=== PATIENT | female | born 1960 | race Caucasian/White ===

== ENCOUNTER → 2020-03-03 15:47 | Outpatient (CLI) | payer BC, SELFPAY ==
--- NOTE | ~2020-03-03 | MM_ITS ---
EXAMINATION: MM screening [facility] BI w ann HISTORY: Screening mammogram TECHNIQUE: Craniocaudal and mediolateral oblique 3-D tomosynthesis images were obtained and synthetic 2-D images were generated. CAD analysis was submitted and interpreted. COMPARISON: 05/20/2018, 05/02/2017, 03/06/2016 BREAST PARENCHYMAL COMPOSITION: There are scattered areas of fibroglandular density. FINDINGS: There is no evidence of suspicious mass, calcification, or architectural distortion to sugg est malignancy in either breast. There has been no suspicious interval change. IMPRESSION: 1. No mammographic evidence of malignancy. 2. Recommend routine screening mammography in one year. BI-RADS Category 1: Negative Reviewed, dictated and finalized at location A. CARE MANAGER
== END ==
PROVIDERS: PCP Family Medicine; Visit Provider Obstetrics & Gynecology
DX: Z12.31 Encounter for screening mammogram for malignant neoplasm of breast (principal)
CPT/HCPCS: 77063; 77067

== ENCOUNTER 2020-04-13 11:00 | Outpatient (RCR) | payer BC, SELFPAY ==
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
--- NOTE | 2020-04-18 09:57 | PCPTNOTE ---
pt called and canceled today's treatment.
--- NOTE | 2020-04-21 15:35 | PCPTNOTE ---
Patient called & cancelled today's and 04/24/20 scheduled appointment this date due to getting a Covid test.
--- NOTE | 2020-05-02 11:06 | PCPTNOTE ---
pt called 05-01-20 and canceled all her PT appointments; received message that her dizziness was worse and she went to ER; waiting to see dr and wants to cancel PT appointments. I called and left voice message for her--check on her and see if she wants to continue treatment or not? Will hold chart open for 2 weeks, in case she wants to return for additional treatment.
--- NOTE | 2020-05-24 09:20 | PCPTNOTE ---
PHYSICAL THERAPY DISCHARGE 05-24-20 Attending Provider: Marcel Rooney MD Patient:Christa June Date of :1960 Ms. June has received 2 PT sessions, on April 10 and , for vestibular therapy. She called and canceled her appointments and has not returned, therefore she will be discharged at this time. The goals were not assessed. Thank you for referring Christa to [facility]. Please review, sign, date and return this discharge summary JOHN. I have been updated about the patient's current status and I agree with discharge from the above service at this time. Referring Physician Date
== END 2020-05-24 12:51 | disposition home or self-care (01) ==
LOC: ANHPT 11:00
PROVIDERS: PCP Family Medicine; Visit Provider Otolaryngology
DX: H81.10 Benign paroxysmal vertigo, unspecified ear (principal)
CPT/HCPCS: 97110; 97161

== ENCOUNTER 2020-04-30 10:15 | Emergency (ER) | payer BC, SELFPAY ==
[2020-04-30] VITALS (7 sets, daily range): BP systolic 127–179; BP diastolic 75–96; PULSE 80–98; RESP 15–22; TEMP 36.6; O2SAT 96–100
--- NOTE | ~2020-04-30 | CT_ITS ---
EXAMINATION: CT brain wo con EXAM DATE: 04/30/2020 13:09 INDICATION: Dizziness. TECHNIQUE: Spiral CT of the head was performed without contrast. Axial, coronal and sagittal images were reviewed. The dose-length product (DLP) for this examination was 605.33 mGy-cm. The exposure w as tailored according to patient size, and iterative reconstruction (ASIR) was used as additional dos e reduction technique. FINDINGS: There is no acute intraparenchymal hemorrhage. No evidence of intraparenchymal brain mass lesion. No evidence of acute infarction. There is no mass effect or midline shift. The ventricles are normal in size. There are no extra-axial collections. There are no acute calvarial fractures. T he orbits are unremarkable. Soft tissue is unremarkable. The visualized sinuses and mastoid air neha ls are well aerated. IMPRESSION: 1. Unremarkable head CT examination. Reviewed, dictated and finalized at location A. UCTION ADMINISTRATIVE ASSISTANT
--- NOTE | 2020-04-30 10:29 | ECG_ITS ---
Measurements Intervals Bryant Rate: 82 P: 42 ME: 170 QRS: 5 QRSD: 86 T: 40 QT: 347 QTc: 407 Interpretive Statements SINUS RHYTHM BASELINE ARTIFACT- I, II, III, AVR, AVL, AVF NORMAL ECG Electronically Signed On 04-30-2020 14:21:46 TRACTOR TRAILER OPERATOR by Fletcher Miguel D.O.
[2020-04-30 11:44] LABS: Add Urine Microscopic? YES; Appearance Urine Clear (Clear); Bilirubin Urine Negative (Negative); Blood Urine Negative (Negative); Color Urine Colorless (Yellow); Glucose Urine UA 2+ mg/dL (Negative); Ketones Urine Negative (Negative); Leukocyte Esterase Ur Negative LEU/UL (Negative); Nitrate Urine Negative (Negative); Protein Urine Negative (Negative); RBC Urine 0-2 /hpf (0-2); Urobilinogen Urine Negative mg/dL (<2.0); WBC Urine 0-3 /hpf
[2020-04-30 11:45] LABS: Basophils Absolute Auto 0.1 K/mm3 (0.0-0.1); Basophils Percent Auto 1.1 % (0.2-1.2); Eosinophils Absolute Auto 0.1 K/mm3 (0-0.3); Eosinophils Percent Auto 1.2 % (0-4.4); Hematocrit 42.9 % (37.0-47.0); Hemoglobin 14.5 g/dL (12.0-15.0); Immature Granulocyte Percent A 1.2 % (0-0.5); Lymphocytes Absolute Auto 1.21 K/mm3 (0.9-3.2); Lymphocytes Percent Auto 14.7 % (18.3-44.2); Mean Corpuscular HGB Conc 33.8 g/dl (32-36); Mean Corpuscular Hemoglobin 29.6 pg (26-34); Mean Corpuscular Volume 87.6 fl (80-100); Mean Platelet Volume 9.5 fl (7.4-10.4); Monocytes Absolute Auto 0.4 K/mm3 (0.1-0.6); Monocytes Percent Auto 4.6 % (2.6-8.5); Neutrophils Absolute Auto 6.3 K/mm3 (1.3-6.7); Neutrophils Percent Auto 77.2 % (45.5-73.1); Platelet Count Result 239 k/mm3 (150-375); Red Cell Distribution Width 12.6 % (11.5-14.5); White Blood Count 8.2 K/mm3 (4.5-10.0)
[2020-04-30 11:45] LABS: Specific Grav Ur 1.004 (1.001-1.035)
[2020-04-30] MEDS: SODIUM CHLORIDE 0.9% IV 500 ML 999 ML IV CONT (11:51)
[2020-04-30 11:58] LABS: Anion Gap 5 mmol/L (8-16); Blood Urea Nitrogen 14 mg/dL (7-17); Calcium 9.4 mg/dL (8.4-10.2); Carbon Dioxide 26 mmol/L (22-30); Chloride 108 mmol/L (98-107); Estimated CRCL calculation 84 ml/min; Estimated Glomerular Filt Rate > 60; Glucose 164 mg/dL (65-105); Potassium 4.3 mmol/L (3.4-5.0); Sodium 139 mmol/L (137-145)
--- NOTE | 2020-04-30 13:55 | ED.GENADULT ---
HPI - General Adult General Chief complaint: Dizziness Stated complaint: dizzy Time Seen by Provider: 04/30/20 10:52 Source: patient, family and old records reviewed Mode of arrival: ambulatory Limitations: no limitations History of Present Illness HPI narrative: Patient is a 59-year-old female who presents with dizziness and not feeling like herself for the last several days with history of vertigo and dizziness which is being worked up by ENT and primary care currently in physical therapy for this patient is also waiting for referral to specialist in [place] for ENT patient on arrival notes that yesterday she felt she had blurred vision that was short-lived and then this morning felt more fatigued and dizzy patient on arrival is in the room in no distress resting comfortably Related Data Allergies Allergy/AdvReac Type Severity Reaction Status Date / Time latex Allergy Unknown Hives Verified 04/30/20 11:07 Penicillins Allergy Unknown HIVES, N/V Verified 04/30/20 11:07 Review of Systems Review of Systems: All systems reviewed & are unremarkable except as noted in HPI and below PMFSH Past Medical History Medical History (Updated 04/30/20 @ 14:04 by Kane Carmichael PA-C) Anxiety GERD (gastroesophageal reflux disease) Hyperlipidemia Sinusitis Surgical History Surgical History History of colonoscopy Social History Social History Smoking status: Unknown if ever smoked Gender identity (if verbalized by the patient): Female Sexual Orientation (if Verbalized by the Patient): Straight or Heterosexual Exam Narrative: Exam Narrative: GENERAL: Well-appearing, well-nourished, and in no acute distress. HEAD: Normocephalic, atraumatic. EYES: PERRLA and EOMI. ENT: Nares clear, no rhinorrhea or epistaxis. Mucous membranes moist. Oropharynx without tonsillar hypertrophy exudate or other lesions. Bilateral TMs with fluid levels bilaterally NECK: Supple. No adenopathy or masses. No carotid bruits or JVD CHEST: Clear to auscultation. No respiratory distress. No wheezes rales or rhonchi HEART: Regular rate and rhythm. No murmur heard. Normal peripheral pulses. ABDOMEN: Soft, nontender, nondistended EXTREMITIES: Normal range of motion. No edema. SKIN: Warm, dry, no rash. NEURO: No focal deficits. Alert and oriented x3. Cranial nerves II through XII grossly intact. Normal speech and gait. Motor and sensory intact. Cerebellar intact. No pronator drift PSYCH: Normal mood and affect. Course Course Emergency Course: Patient in the room no distress aware of case findings treatment plan diagnosis felt appropriate to be followed up by primary care and will be referred back to ENT for further evaluation of her symptoms ABCs intact and stable no high risk changes in the blood work or imaging Vital Signs Vital signs: Vital Signs Temperature 97.9 F 04/30/20 10:22 Pulse Rate 98 04/30/20 10:22 Respiratory Rate 20 04/30/20 10:22 Blood Pressure 179/86 H 04/30/20 10:22 Pulse Oximetry 100 04/30/20 10:22 Temperature 97.9 F 04/30/20 10:22 Pulse Rate 84 04/30/20 11:31 Respiratory Rate 22 H 04/30/20 11:31 Blood Pressure 134/78 04/30/20 11:31 Pulse Oximetry 96 04/30/20 11:31 Medical Decision Making MDM Narrative Medical decision making narrative: Patient's dizziness is felt appropriate for outpatient reevaluation, there are o focal neurological deficits on exam. Subarachnoid hemorrhage is felt to be unlikey at this time. There is no history of fever, and neck is supple without meningismus, making meningitis unlikely. No traumatic history or signs of trauma on exam. No risk factors for CVA, risk factors reviewed. Patients headache is felt to be a reasonable candidate for outpatient evaluation Vital Signs Vital Signs: Vital Signs Temperature 97.9 F 04/30/20 10:22 Pulse Rate 98
== END 2020-04-30 14:40 | disposition home or self-care (01) ==
PROVIDERS: Emergency Medicine Emergency Medical Services; Emergency Provider Emergency Medicine; PCP Family Medicine
DX: R42 Dizziness and giddiness (principal); K21.9 Gastro-esophageal reflux disease without esophagitis; E78.5 Hyperlipidemia, unspecified
CPT/HCPCS: 36415; 70450; 80048; 81001; 84443; 85025; 93005; 96360; 99284; J7040

== ENCOUNTER → 2022-01-31 12:32 | Outpatient (CLI) | payer BC, SELFPAY ==
--- NOTE | ~2022-01-31 | MM_ITS ---
EXAMINATION: MM screening [facility] BI w ann HISTORY: Screening mammogram TECHNIQUE: Craniocaudal and mediolateral oblique 3-D tomosynthesis images were obtained and synthetic 2-D images were generated. CAD analysis was submitted and interpreted. COMPARISON: 03/03/2020, 05/20/2018, 05/02/2017 BREAST PARENCHYMAL COMPOSITION: There are scattered areas of fibroglandular density. FINDINGS: No suspicious mass, calcification, or architectural distortion are identified in either brendon ast to suggest malignancy. There has been no suspicious interval change. IMPRESSION: 1. No mammographic evidence of malignancy. 2. Recommend routine screening mammography in one year. BI-RADS Category 1: Negative Reviewed, dictated and finalized at location A. ER WELT END
== END ==
PROVIDERS: PCP Emergency Medicine; Visit Provider Obstetrics & Gynecology
DX: Z12.31 Encounter for screening mammogram for malignant neoplasm of breast (principal)
CPT/HCPCS: 77063; 77067

== ENCOUNTER 2024-10-12 15:14 | Outpatient (CLI) | payer MEDICARE, SELFPAY ==
--- NOTE | ~2024-10-12 | MR_ITS ---
EXAMINATION: MR knee LT wo con DATE: 10/12/2024 15:49 INDICATION: Left knee joint effusion and medial sided pain TECHNIQUE: Magnetic resonance imaging (MRI) of the left knee was performed without intravenous contrast. Sequences included coronal PD-weighted FSE, coronal PD-weighted FS FSE, sagittal T2-weighted FSE, sagittal PD-weighted FS FSE and axial PD weighted fat saturated FSE. COMPARISON: None. FINDINGS: Medial compartment: There is medial extrusion of the medial meniscal body. Complex medial meniscal tear including a radial tear plane near the posterior root of the medial meniscus and a longitudinal horizontal tear plane extending to the inferior articular surface which extends to the posterior horn and body of the meniscus. There is extensive full/near full-thickness chondral ulceration along the anterior, septal and portions of the posterior weightbearing medial femoral condyle and at the anteromedial quadrant of the medial tibial plateau. There are some scattered mild underlying subarticular edema-like signal change. Lateral compartment: Lateral meniscus is normal. There is partial thickness chondral ulceration with chondral surface irregularity but without degenerative subchondral changes along the medial tibial plateau and at the central weightbearing lateral femoral condyle. Patellofemoral compartment: There is patellar chondral ulceration most severe along the patellar apical ridge where it appears full/near full-thickness with mild underlying subarticular edema-like signal change becoming progressively less severe extending more peripherally at the medial and lateral patellar facets. There is partial thickness chondral ulceration along the trochlea most prominent at the lateral trochlea where superiorly there is a central subchondral osteophyte which does not project beyond the margins of the adjacent cartilage. Ligaments and tendons: Anterior and posterior cruciate ligaments are normal. There is mild thickening and mild increased proximal medial collateral ligament without surrounding edema consistent with mild scarring related to chronic sprain. The fibular collateral ligament complex is normal. The extensor mechanism is normal. The visualized medial and lateral hamstring tendons as well as the iliotibial band are normal. Fluid: Small knee joint effusion at the suprapatellar pouch. There is a moderate-sized Ryan's cyst which measures 4.2 x 1.8 x 2.0 cm. No loose osteochondral bodies identified. Osseous/other: In addition to the tricompartment osteoarthritis at the knee there is additional mild to moderate osteoarthritis at the proximal tibiofibular articulation with likely secondary prominent subarticular cystlike change at the proximal head of the fibula. No fracture or pathologic marrow replacing process. IMPRESSION: 1. Medial extrusion of medial meniscal body with complex tear of the body and posterior horn including a radial tear near the posterior root. 2. Tricompartmental osteoarthritis, severe with extensive high-grade chondral malacia the medial compartment, moderate severity with additional high-grade chondromalacia process in the patellofemoral compartment and mild with moderate grade chondromalacia in the lateral compartment. 3. Mild to moderate osteoarthritis of the proximal tibiofibular articulation. 4. Very small left knee joint effusion and moderate-sized Ryan's cyst. 5. Likely mild scarring related to chronic sprain at the proximal medial collateral ligament. Reviewed, dictated and finalized at location A. IMPRESSION: 1. Medial extrusion of medial meniscal body with complex tear of the body and p osterior horn including a radial tear near the posterior root. 2. Tricompartmental osteoarthritis, severe with extensive high-grade chondral m alacia the medial compartment, moderate severity with additional high-grade cho ndromalacia process in the patellofemoral compartment and mild with moderate gr joy chondromalacia in the lateral compartment. 3. Mild to moderate osteoarthritis of the proximal tibiofibular articulation. 4. Very small left knee joint effusion and moderate-sized Ryan's cyst. 5. Likely mild scarring related to chronic sprain at the proximal medial collat eral ligament.
== END 2024-10-12 15:15 | disposition home or self-care (01) ==
LOC: GOSHIMG 15:14
PROVIDERS: PCP Orthopaedic Surgery; Visit Provider Physician Assistant
DX: S83.232A Complex tear of medial meniscus, current injury, left knee, initial encounter (principal); M25.462 Effusion, left knee; X58.XXXA Exposure to other specified factors, initial encounter; M17.12 Unilateral primary osteoarthritis, left knee; M71.22 Synovial cyst of popliteal space [Baker], left knee
CPT/HCPCS: 73721

== ENCOUNTER 2024-11-23 16:13 | Outpatient (CLI) | payer MEDICARE, SELFPAY ==
--- NOTE | ~2024-11-23 | XR_ITS ---
EXAMINATION: XR knee RT min 4V, 11/23/2024 16:20 CDT HISTORY: M17.11 - Unilateral primary osteoarthritis, right/left knee COMPARISON: No comparisons available. Findings: No acute fracture or malalignment. Moderate to severe tricompartmental degenerative changes Soft tissues unremarkable. Impression: No acute fracture or malalignment. Reviewed, dictated and finalized at location P. Impression: No acute fracture or malalignment.
--- NOTE | ~2024-11-23 | XR_ITS ---
EXAMINATION: XR knee LT min 4V, 11/23/2024 16:20 CDT HISTORY: M17.12 - Unilateral primary osteoarthritis, left knee COMPARISON: No comparisons available. Findings: No acute fracture or malalignment. Moderate tricompartmental degenerative changes Soft tissues unremarkable. Impression: No acute fracture or malalignment. Reviewed, dictated and finalized at location P. Impression: No acute fracture or malalignment.
== END 2024-11-23 16:14 | disposition home or self-care (01) ==
LOC: MICIMG 16:15
PROVIDERS: PCP Orthopaedic Surgery; Visit Provider Orthopaedic Surgery
DX: M17.0 Bilateral primary osteoarthritis of knee (principal)
CPT/HCPCS: 73564

== ENCOUNTER 2024-11-30 12:53 | Outpatient (CLI) | payer MEDICARE, SELFPAY ==
--- NOTE | ~2024-11-30 | CT_ITS ---
EXAMINATION: CT_LERTCWO_CT DATE: 11/30/2024 13:26 INDICATION: Right knee arthritis for preoperative planning TECHNIQUE: High resolution computed tomography (CT) of the right lower extremity from the hip through the ankle was performed without intravenous contrast. Additional sagittal and coronal reconstructions were performed. Automated exposure control and iterative reconstruction technique were employed. The dose- length product was 1785.72 mGy-cm. COMPARISON: 11/23/2024 FINDINGS: Bone alignment is normal. No fracture or suspected osteonecrosis. Severe osteoarthritis at the medial compartment of the right knee with eburnation underlying the articular surface at the anterior aspect medial tibial plateau and the anterior to central weightbearing medial femoral condyle. Mild osteoa rthritis at the lateral and patellofemoral compartments. Moderate osteoarthritis at the first metatarsophalangeal joint and mild osteoarthritis at the right hip and several additional joints in the right foot. Visualized moderate fluid in the right hip, knee and ankle joints. Moderate-sized Ryan's cyst at the medial side of the popliteal fossa. The uterus is not identified and has likely been surgically resected. Bladder, right adnexa and visualized portions of bowels are unremarkable. IMPRESSION: 1. Tricompartmental osteoarthritis at the right knee, severe in the medial compartment. 2. Moderate-sized Ryan's cyst. Reviewed, dictated and finalized at location A. IMPRESSION: 1. Tricompartmental osteoarthritis at the right knee, severe in the medial comp artment. 2. Moderate-sized Ryan's cyst.
--- NOTE | 2024-11-30 13:26 | ECG_ITS ---
Test Date: 2024-11-30 13:54:30 Measurements Intervals Joseph Rate: 73 P: 64 CA: 195 QRS: -21 QRSD: 83 T: -2 QT: 386 QTc: 426 Interpretive Statements SINUS RHYTHM POSSIBLE LEFT ATRIAL ENLARGEMENT INFERIOR INFARCT, AGE INDETERMINATE BASELINE ARTIFACT- I, II, III, AVR, AVL, AVF ABNORMAL ECG No previous ECG available for comparison Electronically Signed On 11-30-2024 13:56:07 CDT by Fletcher Miguel D.O.
--- OUTSIDE RECORDS SUMMARY | 2024-11-30 13:49 | XMS_ITS | Clinical Summary ---
Author Organization [facility] Address [address] [place] [id number] Care Team Providers Care Flag Car Driver Name Role Phone Bisi Salinas MD Primary Care Provider [phone] Allergies Active Allergy Reactions Criticality Noted Date Comments Penicillin V Hives 06/22/2017 Penicillins Rash,Hives Medium 09/04/2010 Medications hydrocodone-jaci taminophen (NORCO) 5-325 MG tablet Take 1-2 tablets by mouth every 6 (six) hours as needed for Pain. 30 tablet 06/26/2017 Active Active Problems Problem Noted Date Diagnosed Date Appendicitis 06/23/2017 Social History Tobacco Use Types Packs/Day Years Used Date Smoking Tobacco: Former Smokeless Tobacco: Never Alcohol Use Standard Drinks/Week Comments Yes 0 (1 standard drink = 0.6 oz pur e alcohol) VERY RARELY Comments No Sex and Gender Information Value Date Recorded Sex Assigned at Not on file Legal Sex Female 4:57 PM CDT Gender Identity Not on file Sexual Orientation Not on file Last Filed Vital Signs Vital Sign Reading Time Taken Comments Blood Pressure 135/62 06/26/2017 5:29 AM CDT Pulse 74 06/26/2017 5:29 AM CDT Temperature 36.7 C (98 F) 06/26/2017 5:29 AM CDT Respiratory Rate 18 06/26/2017 5:29 AM CDT Oxygen Saturation 95% 06/26/2017 5:29 AM CDT Inhaled Oxygen Concentration - - Weight 90.4 kg (199 lb 4.7 oz) 06/23/2017 1:57 A M CDT Height 170.2 cm (5' 7) 06/23/2017 1:57 AM CDT Body Mass Index 31.21 06/23/2017 1:57 AM CDT Plan of Treatment Health Maintenance Due Date Last Done Comments Colorectal Cancer Screening Colonoscopy (10 Years) 1960 Hepatitis C 1976 DTaP, Tdap and Td Vaccines ( 1 - Tdap) 1977 Mammogram Screening 1998 Pneumococcal Vaccine: 50+ Ye ars (1 of 1 - PCV) 2008 Zoster Vaccines (1 of 2) 2008 Dexa Scan (General) 09/14/2023 COVID-19 Vaccine (1 - 2023-2 5 season) 2024 Influenza Adult (#1) 2024 RSV Immunization or 60+ Years (1 - 1-dose 75+ series) 2033 Meningococcal B Vaccine Aged Out No l onger eligible based on patient's age to complete this topic Meningococcal Vaccine Aged Out No rita van eligible based on patient's age to complete this topic RSV Immunizations Under 20 Months Aged Out No longer eligible based on patient's age to complete this topic Insurance Advance Directives * Full Code (Latest Code Status on File) Date Activated Date Inactivated Comments 06/25/2017 5:51 PM 06/26/2017 8:10 PM Care Teams Flag Car Driver Relationship Specialty Start Date End Date Bisi Salinas MD PCP - General 05/12/10
--- OUTSIDE RECORDS SUMMARY | 2024-11-30 13:49 | XMS_ITS | Patient Health Record ---
Author Organization [facility] Address [address] [place], [place] [id number] Care Team Providers Care Crude Unit Operator Name Role Phone MiloJIMENEZ kraft Unavailable Bisi Salinas Unavailable Unavailable Reason For Referral No Information Medications Medication SIG (Take, Route, Frequency, Duration) Notes Start Date End Date Status Medrol Dosepak ORAL Medrol DosepakOr iginal MedicationMedrol Dosepak *Reorder from [employer] for eRx and Interaction Alerts* 08/12/2016 Active Plan Of Treatment No Information Insurance Providers Payer Name Payer Address Payer Phone Subscriber Number Group Number Insured Name Patient Relationship to Insured Coverage Start Date Coverage End Date [employer] [address] [place] [phone] [id number] YASMIN GARG Self - patient is the insured
--- OUTSIDE RECORDS SUMMARY | 2024-11-30 13:49 | XMS_ITS | Clinical Summary ---
Author Organization [facility] Address [address] [place] [id number] Phone Care Team Providers Care Protein Scientist Name Role Phone Bisi Salinas MD Primary Care Provider [phone] Allergies Active Allergy Reactions Criticality Noted Date Comments Latex Hives High 06/08/2020 Penicillins Rash Low 06/08/2020 Medications loratadine (CLARITIN) 10 mg tablet Take 10 mg by mouth. 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 TESTER Gender Identity Not on file Sexual Orientation Not on file Last Filed Vital Signs Vital Sign Reading Time Taken Comments Blood Pressure 134/64 06/09/2020 1:23 PM CDT Pulse 62 06/09/2020 5:32 AM CDT Temperature 36.6 C (97.8 F) 06/09/2020 11:37 AM CDT Respiratory Rate 16 06/09/2020 1:23 PM CDT Oxygen Saturation 98% 06/09/2020 1:23 PM CDT Inhaled Oxygen Concentration - - Weight 90.3 kg (199 lb) 06/08/2020 1:14 PM CDT Height 170.2 cm (5' 7) 06/08/2020 1:14 PM CDT Body Mass Index 31.17 06/08/2020 1:14 PM CDT Plan of Treatment Health Maintenance Due Date Last Done Comments BREAST CANCER SCREENING 1998 COLORECTAL SCREENING 09/14/2003 Colorectal Cancer Screening 09/14/2003 FIT-DNA Q 3 years 09/14/2003 FIT/FOBT Q 1 year 09/14/2003 Flex Sig/CT Colonography Q 5 years 09/14/2003 PNEUMOCOCCAL VACCINE 50+ YEA RS (1 of 1 - PCV) 2008 ZOSTER VACCINE (1 of 2) 2008 OSTEOPOROSIS SCREENING 09/14/2023 INFLUENZA VACCINE (#1) 2024 , 01/03/2019, 01/12/2016 DTAP/TDAP/TD VACCINES (2 - T d or Tdap) 08/10/2025 08/11/2015 RSV VACCINE (60+ or ) (1 - 1-dose 75+ series) 2033 Insurance [employer] VUEL[employer]IC/TRUE [employer] PPO Advance Directives For more information, please contact: [phone] * Default Full Code - Needs Discussion (Latest Code Status on File) Date Activated Date Inactivated Comments 06/09/2020 8:01 AM 06/09/2020 3:36 PM Care Teams Protein Scientist Relationship Specialty Start Date End Date Bisi Salinas MD [address] [phone] PCP - General Family Practice 06/08/20
--- OUTSIDE RECORDS SUMMARY | 2024-11-30 13:49 | XMS_ITS | Clinical Summary ---
Author Organization [facility] [address] Address [address] [place] [address] Care Team Providers Care Machine Tracer Name Role Phone Parent, Sil ARAUJO Primary Care Provider [phone] Allergies Active Allergy Reactions Criticality Noted Date Comments Penicillins Hives Medium 03/05/2017 Medications No known medications Active Problems Problem Noted Date Diagnosed Date GERD (gastroesophageal reflux disease) 8 Other chest pain 03/05/2017 SOB (shortness of breath) 03/05/2017 Class 1 obesity without seri ous comorbidity with body mass index (BMI) of 32.0 to 32.9 in adult 03/05/2017 ESTEFANI (obstructive sleep apnea) 03/05/2017 Chronic fatigue 03/05/2017 Dyslipidemia 03/05/2017 Second hand smoke exposure 03/05/2017 Lipid screening 03/05/2017 Surgical History Surgery Date Site/Laterality Comments HYSTERECTOMY BUNIONECTOMY Family History Medical History Relation Name Comments Heart attack Mother Relation Name Status Comments Father (Age 44) Mother Alive Social History Tobacco Use Types Packs/Day Years Used Date Smoking Tobacco: Former Smokeless Tobacco: Never Alcohol Use Standard Drinks/Week Comments Yes 0 (1 standard drink = 0.6 oz pur e alcohol) socially Comments Unknown Sex and Gender Information Value Date Recorded Sex Assigned at Not on file Legal Sex Female 3:48 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 Gender Identity Female 03/14/2019 11:25 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 Sexual Orientation Straight 03/14/2019 11 :25 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 Obstetrics History Last Filed Vital Signs Vital Sign Reading Time Taken Comments Blood Pressure 124/78 03/05/2017 8:47 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 Pulse 75 03/05/2017 8:47 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 Temperature - - Respiratory Rate - - Oxygen Saturation 98% 03/05/2017 8:47 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 Inhaled Oxygen Concentration - - Weight 94.8 kg (209 lb) 03/05/2017 8:47 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 Height 170.2 cm (5' 7) 03/05/2017 8:47 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 Body Mass Index 32.73 03/05/2017 8:47 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 Plan of Treatment Health Maintenance Due Date Last Done Comments Breast Cancer Screening-Mammogram 1960 Colon Cancer Screening-Colonoscopy 1960 Depression Screening 1958 Fall Risk Assessment 1960 Hepatitis C Screening 1958 Osteoporosis Screening-Bone Density Scan 1958 Hepatitis B Screening 1976 Pneumococcal vaccine 65+ (1 of 1 - PCV) 2008 Zoster Vaccine (1 of 2) 2008 Well Visit 65+ 09/14/2023 Covid-19 Vaccine (4 - 2024-2 6 season) 2024 01/24/2021, 06/22/2020, 05/25/2020 Influenza Vaccine (#1) 2024 , 02/28/2023, 12/01/2021, Additional history exists DTaP/Tdap/Td Vaccine (3 - Td or Tdap) 08/10/2025 08/11/2015, 08/10/2015, 06/06/2004 Insurance [place] [facility] MEDICARE [facility] Address: [facility] [address] [place] [address] Care Teams Machine Tracer Relationship Specialty Start Date End Date Sil Newman PA [address] [address] PCP - General Family Practice 07/26/24
--- OUTSIDE RECORDS SUMMARY | 2024-11-30 13:49 | XMS_ITS | Encounter Summary ---
Author Organization [facility] Address [address] [place] [address] Care Team Providers Care Cloth Bleaching Range Back Tender Name Role Phone Bisi Salinas MD Primary Care Provider [phone] Encounter Details Date Type Department Care Team (Late st Contact Info) Description 04/11/1999 Outpatient Historical [facility] [place] Peguero, Lloyd Ibrahim MD [address] [place] [address] Other screening mammogram (Primary Dx) Social History Tobacco Use Types Packs/Day Years Used Date Smoking Tobacco: Never Assessed Comments Unknown Sex and Gender Information Value Date Recorded Sex Assigned at Not on file Legal Sex Female 4:58 AM TECH[employer] Gender Identity Not on file Sexual Orientation Not on file documented as of this encounter Plan of Treatment Not on file documented as of this encounter Visit Diagnoses Diagnosis Other screening mammogram- Primary documented in this encounter Care Teams Cloth Bleaching Range Back Tender Relationship Specialty Start Date End Date Bisi Salinas MD [address] [facility] [address] [phone] PCP - General Family Practice 06/08/20 documented as of this encounter
--- OUTSIDE RECORDS SUMMARY | 2024-11-30 13:49 | XMS_ITS | Clinical Summary ---
Author Organization [facility] [employer] Address [address] [place] [address] Care Team Providers Care Police Commissioner Name Role Phone ParentSil VAN Primary Care Provider Source Comments [facility] [employer],non-owned Affiliates and Associated Physician Practices is amultiple site organization consisting of ambulatory clinics and hospital sitesin [place] and [place]. This disclosure is being madepursuant to the Care Everywhere program and may not contain all information available regarding this patient. Last updated 17.[facility] [employer] Allergies Active Allergy Reactions Criticality Noted Date Comments Latex Rash Medium 06/02/2020 Levofloxacin Other 06/02/2020 Penicillins Skin Reactions 09/04/2010 Medications * Be aware that medications may not be up to date on this document. Alwaysverify current medications with the patient. loratadine (WAL-ITIN) 10 MG tablet Take 1 (one) tablet by mouth once daily Active olopatadine (PATANASE) 0.6 % nasal solutionIndicati ons:Allergic rhinitis, unspecified seasonality, unspecified trigger Rodanthe 2 (two) sprays into each nostril 2 times daily 30.5 g 11 2 Active Additional Information Patient taking differently:2 spray Each NostrilPRN, Reported on 09/22/2023 meloxicam (Mobic) 15 MG tablet Take 1 (one) tablet by mouth once daily Active pantoprazole EC (Protonix) 20 MG tablet Take 1 (one) tablet by mouth every morning 4 Active albuterol HFA (Proventil; Ventolin; Proair) 108 (90 Base) MCG/ACT inhaler Inhale 1 (one) puff by mouth every 6 hours as needed Active Active Problems Problem Noted Date Diagnosed Date Left otitis media with effusion 01/28/2023 Throat tightness 12/28/2020 Migraines 09/01/2020 Overview (09/01/2020): atypical per pt Sleep disorder 09/01/2020 Migraine 09/01/2020 Mixed anxiety and depressive disorder 07/03/2020 Appendicitis 06/23/2017 Chest pain 03/05/2017 Chronic fatigue 03/05/2017 ESTEFANI (obstructive sleep apnea) 03/05/2017 Second hand smoke exposure 03/05/2017 SOB (shortness of breath) 03/05/2017 Abnormal glucose level 12/09/2014 Hyperlipidemia 12/09/2014 Malaise and fatigue 11/24/2014 GERD (gastroesophageal reflux disease) 4 Resolved Problems Problem Noted Date Diagnosed Date Resolved Date Upper respiratory tract infection 01/28/2023 02/11/2023 Class 1 obesity without seri ous comorbidity with body mass index (BMI) of 32.0 to 32.9 in adult 03/05/2017 08/30/2020 Encounters Date Type Department Care Team Description 2024 10:15 AM CDT Office [facility] - ENT [address] [place] [phone] Joseluis Camacho MD Bilateral chronic serous otitis media (Primary Dx); ETD (Eustachian tube dysfunction), bilateral; Bilateral sensorineural hearing loss; Atypical migraine 2024 9:30 AM CDT Testing Visit [facility] - ENT [address] [place] [phone] Sakshi Awad AuD Sensorineural hearing loss (SNHL) of both ears ; Dizziness 2024 Travel from Last 3 Months Immunizations Immunization Administration Dates Next Due Covid [employer] primary monoval ent 12+ yr 0.3mL Purple cap 01/24/2021,06/22/2020,05/25/2020 FLU VACCINE QUAD IIV4 SPLIT 0.25 ML IM 12/26/2020,11/26/2019,01/03/2019,2015 INFLUENZA VACCINE 12/01/2021,12/26/2020,03/25/19 18 INFLUENZA VACCINE, CELL CULT URE, QUADR. (FLUCELVAX QUADRIVALENT; 6MO+) (CCIIV4) 02/28/2023,12/01/2021 INFLUENZA VACCINE, CELL CULT URE, QUADR. (FLUCELVAX QUADRIVALENT; 6MO+), 0.5 ML (CCIIV4) 12/01/2021,02/28/2018 INFLUENZA VACCINE, HIGH-DOSE , QUADR. (FLUZONE HIGH-DOSE QUADRIVALENT; 65Y+), 0.7 ML (HD-IIV4) 02/04/2024 INFLUENZA VACCINE, QUADR. (F LUZONE; FLULAVAL; FLUARIX; AFLURIA QUADRIVALENT; 6MO+), 0.5 ML (IIV4) 12/26/2020,11/26/2019 INFLUENZA VACCINE, TRIV. (FL UZONE; FLULAVAL; FLUARIX; AFLURIA TRIVALENT; 6MO+), 0.5 ML (IIV3) 03/25/2017 TD (AGE 7-ADULT) 06/06/2004 TDAP (7yrs+) 08/11/2015 TDAP, HISTORIC VACCINE 08/10/2015 Family History Medical History Relation Name Comments None Known Brother Alcohol abuse Father Arthritis - Osteo Father Diabetes - Type 2 Maternal Grandmother CAD (Coronary Artery Disease) Mother Diabetes - Type 2 Mother High Cholesterol Mother Hypertension Mother Sleep Disorder - Other Mother estefani, not using cpap Osteoporosis Sister 1 yadira None Known Sister 2 Relation Name Status Comments Brother Alive Father Maternal Grandmother Mother Alive Sister 1 yadira Alive Sister 2 Alive Social History Tobacco Use Types Packs/Day Years Used Date Smoking Tobacco: Never Smokeless Tobacco: Never Tobacco Cessation:Counseling Given: Not Answered Alcohol Use Standard Drinks/Week Comments Not Currently 0 (1 standard drink = 0.6 oz pur e alcohol) gives headache PHQ-2 Answer Date Recorded PHQ2 TOTAL SCORE 0 05/16/2021 Education Answer Date Recorded What is the highest level of school you have completed or the highest degree you have received? 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 Not on file Not on file Not on file Last Filed Vital Signs Vital Sign Reading Time Taken Comments Blood Pressure 113/70 2024 9:50 AM CDT Pulse 83 2024 9:50 AM CDT Temperature 36.9 C (98.4 F) 07/13/2021 9:19 AM CDT Respiratory Rate 18 05/16/2021 3:10 PM CDT Oxygen Saturation 98% 05/16/2021 3:10 PM CDT Inhaled Oxygen Concentration - - Weight 94.3 kg (208 lb) 2024 9:50 AM CDT Height 170.2 cm (5' 7) 2024 9:50 AM CDT Body Mass Index 32.58 2024 9:50 AM CDT Plan of Treatment Upcoming Encounters Date Type Department Care Team (Late st Contact Info) Description 09/19/2025 9:30 AM CDT Testing Visit [facility] - ENT [address], [place] [phone] Sakshi Awad, Shannan [address] [facility] [place] [address] 09/19/2025 10:00 AM CDT Office Visit [facility] - ENT [address] [place] [address] Joseluis Camacho MD [address] DEPT OF OTOLARYNGOLOGY [place], [place] [id number] Health Maintenance Due Date Last Done Comments BONE DENSITY TESTING 1960 COLOGUARD (AGES 45-75) - COLON CA SCREENING 1958 COLON MONITORING 1958 COLONOSCOPY - COLON CA SCREENING 1958 CT COLONOGRAPHY - COLON CA SCREENING 1960 Colorectal Cancer Screening 1958 FIT - COLON CA SCREENING 1958 FLEX SIG - COLON CA SCREENING 1958 LIPID TESTING 1960 MAMMOGRAM 1958 HEPATITIS C SCREENING 09/08/1976 PNEUMOCOCCAL VACCINE 50+ (1 of 1 - PCV) 2008 ZOSTER VACCINE (1 of 2) 2008 Respiratory Syncytial Virus (RSV) Vaccine Pt: or over 60 yrs (1 - Risk 60-74 years 1-dose series) 2018 SCREENING FOR DIABETES 09/27/2023 09/26/2020 DEPRESSION SCREENING 02/25/2024 02/07/2022, 01/07/2022, 01/02/2022, Additional history exists MEDICARE AWV CALENDAR YEAR 2024 COVID-19 VACCINE ( - 2024- season) 2024 01/24/2021, 06/22/2020, 05/25/2020 INFLUENZA VACCINE (#1) 2024 , 02/28/2023, 12/01/2021, Additional history exists DTAP/TDAP/TD VACCINES (4 - Td or Tdap) 08/10/2025 08/11/2015, 08/10/2015, 06/06/2004 HEPATITIS B VACCINE Aged Out No longe r eligible based on patient's age to complete this topic HIB VACCINE Aged Out No longer eligi ble based on patient's age to complete this topic HPV VACCINE Aged Out No longer eligi ble based on patient's age to complete this topic MENINGOCOCCAL (Group B) VACCINE SHARED DECISION-MAKING Aged Out No longer eligible based on patient's age to complete this topic MENINGOCOCCAL GROUPS A/C/Y/W VACCINE Aged Out No longer eligible based on patient's age to complete this topic Goals Goal Patient Goal Type Associated Problems Recent Progress Patient-Stated? Author Mobility General On track(11/28/19 2:28 PM CDT) No Jojo Cabrera, RN Note: Expected end date: 02/23/2021 The goal is to maintain or improve your mobility at the optimum level for you. Interventions: Procedures Procedure Name Priority Date/Time Associated Diagnosis Comments AUDIOLOGY/TYMPANOMET RY ORDER Routine 2024 9:25 AM CDT HEMOGLOBIN A1C Routine 09/26/2020 9:06 AM CDT Excessive daytime sleepiness Restless sleeper Nocturia Overweight (BMI 25.0-29.9) from Last 3 Months or Most Recently Relevant to Health Maintenance Results * AUDIOLOGY/TYMPANOMETRY ORDER (2024 9:25 AM CDT) Saskhi Osei AuD - 2024 9:25 AM CDT History: Christa June arrived for a hearing evaluation. Patient has a history of bilateral high frequency hearing loss. She is unsure of changes in hearing. She does note occasional dizziness. She denies tinnitus. Results: Puretone air/bone conduction testing revealed a normal sloping to mild SN hearing loss in the right ear and a normal sloping to moderate SN hearing loss in the left ear. Speech understanding was excellent in the right ear and excellent in the left ear. When compared to the previous hearing test, today's results do no suggest a change in hearing. Immittance measures revealed a Type As tympanogram in the right ear, indicating shallow middle ear function. Results for the left ear revealed a Type A tympanogram, indicating normal middle ear function in that ear. These results were discussed in detail with the patient and all pertinent questions were answered. Recommendations: 1) ENT consult. 2) Re check per medical recommendation, annually, or if a change in hearing is suspected. Shannan Schilling. [facility] [employer] [facility]-Department of Otolaryngology/[facility] [address] [place] [address]. ([facility]) [place] [address] Sakshi Campbell AUDIOLOGY SERVICES ORDERABLES F inal Result * (ABNORMAL) HEMOGLOBIN A1C (09/26/2020 9:06 AM CDT) Hemoglobin A1c 5.8(H) <5.7 % of total Hgb [facility] Comment: REPORT COMMENT: FASTING:YES AN UPDATE OR CORRECTION HAS BEEN MADE TO NAME Test Performed at: [facility] [phone] NATHANIEL NEAL MD Blood BLOOD SPECIMEN / Unknown 09/26/2020 9:06 AM CDT 09/26/2020 9:07 AM CDT Rae Tavares APNP-ARBORIST REPRESENTATIVE LAB - CHEMISTRY ORDERABLES Final Result [address] [id number] from Last 3 Months or Most Recently Relevant to Health Maintenance Insurance [facility] MANAGED MEDICARE ADV Care Teams Police Commissioner Relationship Specialty Start Date End Date Parent, VAN Prado [address] [place] [phone] PCP - General Physician Curve Cleaner 09/13/24
--- OUTSIDE RECORDS SUMMARY | 2024-11-30 13:50 | XMS_ITS | Data Portability ---
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 Plan of Treatment Reminders Order Date Submit Date Provider Last Modified By Organization Details Last Modified Time Details Appointments None recorded. Lab lipid panel, serum 2024 025 [employer] [facility], [address], [place], [address], 5 11:09:57 HbA1c (hemoglobi n A1c), blood 2024 025 In-Office Order, Internal Use Only DO Not Attach Compendium DO Not Attach Compendium, Do Not Delete/merge, [id number] 12:39:47 vitamin D, 25-hydroxy , total, serum 2024 025 [employer] [facility], [address], [place], [address], 5 11:10:00 hepatitis C virus Ab, serum 2024 025 [employer] [facility], [address], [place], [address], 5 11:09:59 HIV 1+2 Ab + HIV1 p24 Ag, quantitati ve immunoassa y, serum 2024 025 [employer] [facility], [address], [address], [place], [address], 5 11:09:58 TSH, serum or plasma 2023 024 [employer] [facility], [address], [address], [place], [address], 4 15:01:04 CBC w/ auto diff 2023 024 [employer] [facility], [address], [address], [place], [address], 4 15:01:03 CMP, serum or plasma 2023 024 [employer] [facility], [address], [address], [place], [address], 4 15:01:01 HbA1c (hemoglobi n A1c), blood 2023 024 In-Office Order, Internal Use Only DO Not Attach Compendium DO Not Attach Compendium, Do Not Delete/merge, [id number] 4 12:07:13 microalbum in/creatin ine, mass ratio, urine 2023 024 [employer] [facility], [address], [address], [place], [address], 4 15:01:00 influenza virus A + B + SARS-CoV-2 (COVID19) Ag panel, rapid IA, upper respirator y specimen 2023 024 In-Office Order, Internal Use Only DO Not Attach Compendium DO Not Attach Compendium, Do Not Delete/merge, [id number] 4 17:29:44 urinalysis , dipstick 2023 024 In-Office Order, Internal Use Only DO Not Attach Compendium DO Not Attach Compendium, Do Not Delete/merge, 4 17:29:45 culture, urine 2023 024 [employer] [facility], [address], [address], [place], [address], 4 01:58:11 glucose, fingerstic k, blood 2023 024 BEN In-Office Order, Internal Use Only DO Not Attach Compendium DO Not Attach Compendium, Do Not Delete/merge, 4 09:27:04 HbA1c (hemoglobi n A1c), blood 2023 024 BEN In-Office Order, Internal Use Only DO Not Attach Compendium DO Not Attach Compendium, Do Not Delete/merge, 4 09:26:51 urinalysis , dipstick 2022 023 [email or web address] In-Office Order, Internal Use Only DO Not Attach Compendium DO Not Attach Compendium, Do Not Delete/merge, 3 17:33:59 culture, urine 2022 023 [employer] [facility], [address], [address], [place], [address], 3 05:04:09 lipid panel, serum 2022 023 [employer] [facility], [address], [address], [place], [address], 4 13:43:00 CMP, serum or plasma 2022 023 [employer] [facility], [address], [address], [place], [address], 4 13:42:59 CBC w/ auto diff 2022 023 [employer] [facility], [address], [address], [place], [address], 4 13:42:59 vitamin B12 + folate, serum or blood 2022 023 [employer] [facility], [address], [address], [place], [address], 4 13:43:00 vitamin D, 25-hydroxy , total, serum 2022 023 [employer] [facility], [address], [address], [place], [address], 4 13:43:00 Referral diabetic ophthalmol ogy referral - [facility] [address], [place], [address], 5 12:25:19 orthopedic surgeon referral - She has disc of xrays and US. 2024 025 BEN Linares MD, [address], [place], [address], 5 12:15:58 Procedures None recorded. Surgeries None recorded. Imaging MAM[facility], screening, digital, [facility] [address], [place], [address], 5 11:49:27 MRI, knee, w/o contrast [address] [facility], [address], [address], [place], [address], 5 10:21:43 DEXA - please try to schedule same day as mammogram 2024 [facility] [address], [address] [address], [place], [address], 11:49:28 Medication Orders Cipro 500 mg tablet 2023 024 [facility][id number], [address] [place], [address], 11:12:12 phenazopyr idine 200 mg tablet 2022 024 [facility]armacy #2510, [address] [place], [address], 11:12:59 cefdinir 300 mg capsule 2022 023 [email or web address] 39 [facility]/Pharmacy #[id number], [address] [place], [address], 11:12:48 Patient TargetsNo targets recorded. Patient Instructions Encounter Date Encounter Id Patient Instructions Last Modified By Organization Details Last Modified Time 02/13/2023 [id number] eustachian tube problems: care instructions [email or web address] Not available 02/13/2023 17:40:22 Christa, - Thank you for your visit - Continue your current medications - Use medications as directed - call us if no improvement in urinary symptoms after 48 hours - we will call you with a change in antibiotic if indicated - add famotidine daily in the evening - increase to 40 mg if not improving after 3-4 days - Call with any concerns [email or web address] Not available 02/13/2023 17:40:20 07/20/2024 [id number] A healthy lifestyle: care instructions Not available 07/20/2024 12:29:03 09/07/2024 [id number] advance care planning: care instructions Not available 09/07/2024 12:39:48 preventing falls : care instructions Not available 09/07/2024 12:39:47 Medicare Wellnes s Preventive Checklist Not available 09/07/2024 12:39:47 eating healthy foods: care instructions Not available 09/07/2024 12:39:47 AD8 Dementia Screening Interview Not available 09/07/2024 12:39:47 A healthy lifestyle: care instructions Not available 09/07/2024 12:39:47 Reason for Referral Orthopedic Surgeon Referral for Synovial popliteal cyst of left knee She has disc of xrays and US. Referring Physician: Sil Newman [facility], Encounter Date: 07/20/2024 Diabetic Ophthalmology Refer ral for Well controlled type 2 diabetes mellitus prefers [place] location Referring Physician: Sil Newman [facility], Encounter Date: 09/07/2024 Results Created Date Observation Date Name Description Value Unit Range Abnormal Flag Note LastModifiedBy Organization Detail LastModifiedTime 02/14/20 23 02/19/2023 CULTU RE, URINE , ROUTI NE culture, urine, routine SEE NOTE abnormal CULTU RE, URINE , ROUTI NE Micro Numbe r: [id number] Test Statu s: Final Speci men Sourc e: Urine Speci men Quali ty: Adequ ate Resul t: Great er than 100,0 00 CFU/m L of Esche luna a coli E.col i ----- ----- ----- - INT ALEJANDRINA AMOX/ CLAVU LANAT E R >=32 AMP/S ULBAC ESCALANTE R >=32 CEFAZ REG R >=64 1 CEFEP DYANA S <=0.1 2 CEFTA ZIDIM E S 2 CEFTR IAXON E S 1 CIPRO FLOXA ZOILA S <=0.0 6 GENTA MICIN R >=16 IMIPE NEM S <=0.2 5 LEVOF LOXAC IN S <=0.1 2 MEROP ENEM S <=0.2 5 NITRO FURAN TOIN S <=16 PIP/T AZOBA CTAM S 8 TRIME THOPR IM/JIMENEZ LFA R >=320 S=Kathryn cepti ble I=Int ermed iate R=Res istan t * = Not Teste d NR = Not Repor deb NN = See Thera py Comme nts THERA PY COMME NTS Note 1: For uncom plica deb UTI cause d by E. coli, K. pneum oniae or P. mirab ilis: Cefaz reg is susce ptibl e if ALEJANDRINA <32 mcg/m L and predi cts susce ptibl e to the oral agent s cefac jumana, cefdi huber, cefpo doxim e, cefpr ozil, cefur oxime , cepha lexin and lorac arbef . Not Available [facility] [address] [place], [address], 02/19/2023 16:45:06 02/14/20 23 02/13/2023 urina lysis , dipst ick Leukocytes Small Not Available In-Offi ce Order Internal Use Only DO Not Attach Compendium DO Not Attach Compendium, Do Not Delete/merge, 02/13/2023 15:40:55 02/14/20 23 02/13/2023 urina lysis , dipst ick Nitrite positi ve Not Available In-Office Order Internal Use Only DO Not Attach Compendium DO Not Attach Compendium, Do Not Delete/merge, 02/13/2023 15:40:55 02/14/20 23 02/13/2023 urina lysis , dipst ick Urobilinogen .2 Not Available In-Of fice Order Internal Use Only DO Not Attach Compendium DO Not Attach Compendium, Do Not Delete/merge, 02/13/2023 15:40:55 02/14/20 23 02/13/2023 urina lysis , dipst ick Protein Negati ve Not Available In-Office Order Internal Use Only DO Not Attach Compendium DO Not Attach Compendium, Do Not Delete/merge, 02/13/2023 15:40:55 02/14/20 23 02/13/2023 urina lysis , dipst ick pH 5.5 Not Available In-Office Order Internal Use Only DO Not Attach Compendium DO Not Attach Compendium, Do Not Delete/merge, 02/13/2023 15:40:55 02/14/20 23 02/13/2023 urina lysis , dipst ick Blood Hemoly zed: Trace Not Available In-Office Order Internal Use Only DO Not Attach Compendium DO Not Attach Compendium, Do Not Delete/merge, [id number] 02/13/2023 15:40:55 02/14/20 23 02/13/2023 urina lysis , dipst ick Specific [place] 1.015 Not Available In-Off ice Order Internal Use Only DO Not Attach Compendium DO Not Attach Compendium, Do Not Delete/merge, [id number] 02/13/2023 15:40:55 02/14/20 23 02/13/2023 urina lysis , dipst ick Ketone Negati ve Not Available In-Office Order Internal Use Only DO Not Attach Compendium DO Not Attach Compendium, Do Not Delete/merge, [id number] 02/13/2023 15:40:55 02/14/20 23 02/13/2023 urina lysis , dipst ick Bilirubin Negati ve Not Available In-Office Order Internal Use Only DO Not Attach Compendium DO Not Attach Compendium, Do Not Delete/merge, [id number] 02/13/2023 15:40:55 02/14/20 23 02/13/2023 urina lysis , dipst ick Glucose Negati ve Not Available In-Office Order Internal Use Only DO Not Attach Compendium DO Not Attach Compendium, Do Not Delete/merge, [id number] 02/13/2023 15:40:55 02/14/20 23 02/13/2023 urina lysis , dipst ick Appearance Clear Not Available In-Offi ce Order Internal Use Only DO Not Attach Compendium DO Not Attach Compendium, Do Not Delete/merge, [id number] 02/13/2023 15:40:55 02/14/20 23 02/13/2023 urina lysis , dipst ick Color Yellow Not Available In-Office Order Internal Use Only DO Not Attach Compendium DO Not Attach Compendium, Do Not Delete/merge, [id number] 02/13/2023 15:40:55 02/15/20 23 02/15/2023 LIPID PANEL , STAND SLY cholesterol, total 215 mg/dL <200 high Not Available [facility] [place] [address] [place], [address], 02/15/2023 04:46:26 02/15/20 23 02/15/2023 LIPID PANEL , STAND SLY HDL cholesterol 48 mg/dL > or = 50 low Not Available [facility] [address] [place], [address], 02/15/2023 04:46:26 02/15/2002/15/2023 LIPID PANEL , STAND SLY triglyceride s 191 mg/dL <150 high Not Available [facility] [address] [address] [place], [address], 02/15/2023 04:46:26 02/15/2002/15/2023 LIPID PANEL , STAND SLY LDL-choleste rol 134 mg/dL _(dianna c) high Refer ence range : <100 David able range <100 mg/dL for prima ry preve ntion ; <70 mg/dL for patie nts with CHD or diabe tic patie nts with > or = 2 CHD risk facto rs. LDL-C is now calcu lated using the [facility] kins jb cabrales n, which is a valid ated novel metho d provi steffany chuck r accur acy than the Fried chastity equat ion in the estim ation of LDL-C . Concetta spence SS et al. SUNNI. 2013; 310(1 9): 2061- 2068 (http ://ed ucati on.Hone and Strop Cecilia Easyclass.com. com/f aq/FA Q164) Not Available [facility] [address] [place], [address], 02/15/2023 04:46:26 02/15/20 23 02/15/2023 LIPID PANEL , STAND SLY chol/HDLC ratio 4.5 (calc ) <5.0 normal Not Available [facility] [address] [place], [address], 02/15/2023 04:46:26 02/15/20 23 02/15/2023 LIPID PANEL , STAND SLY non HDL cholesterol 167 mg/dL _(dianna c) <130 high For patie nts with diabe dickson plus 1 major ASCVD risk facto r, treat ing to a non-H DL-C goal of <100 mg/dL (LDL- C of <70 mg/dL ) is consi dered a thera peuti c optio n. Not Available [address], [address], 02/15/2023 04:46:26 02/15/20 23 02/15/2023 COMPR EHENS FREDDY METAB OLIC PANEL glucose 134 mg/dL 65-99 high Fasti ng refer ence inter aníbal For someo ne witho ut known diabe dickson, a gluco se value >125 mg/dL indic ates that they may have diabe dickson and this shoul d be confi rmed with a follo w-up test. Not Available [address], [address], 02/15/2023 04:46:27 02/15/20 23 02/15/2023 COMPR EHENS FREDDY METAB OLIC PANEL urea nitrogen (BUN) 19 mg/dL 7-25 normal Not Available [address] [address] [place], [address], 02/15/2023 04:46:27 02/15/20 23 02/15/2023 COMPR EHENS FREDDY METAB OLIC PANEL creatinine 0.92 mg/dL 0.50-1 .05 normal Not Available [address] [address] [place], [address], 02/15/2023 04:46:27 02/15/20 23 02/15/2023 COMPR EHENS FREDDY METAB OLIC PANEL eGFR 70 mL/mi n/1.7 3m2 > or = 60 normal Not Available [address], [address], 02/15/2023 04:46:27 02/15/20 23 02/15/2023 COMPR EHENS FREDDY METAB OLIC PANEL BUN/creatini ne ratio SEE NOTE: (calc ) 6-22 Not Repor deb: BUN and Creat inine are withi n refer ence range . Not Available [address] [address] [place], [address], 02/15/2023 04:46:27 02/15/20 23 02/15/2023 COMPR EHENS FREDDY METAB OLIC PANEL sodium 139 mmol/ L 135-14 6 normal Not Available [address] [address] [place], [address], 02/15/2023 04:46:27 02/15/20 23 02/15/2023 COMPR EHENS FREDDY METAB OLIC PANEL potassium 4.2 mmol/ L 3.5-5. 3 normal Not Available [address], [address], 02/15/2023 04:46:27 02/15/2002/15/2023 COMPR EHENS FREDDY METAB OLIC PANEL chloride 103 mmol/ L 98-110 normal Not Available [address], [address], 02/15/2023 04:46:27 02/15/20 23 02/15/2023 COMPR EHENS FREDDY METAB OLIC PANEL carbon dioxide 29 mmol/ L 20-32 normal Not Available [address] [place], [address], 02/15/2023 04:46:27 02/15/20 23 02/15/2023 COMPR EHENS FREDDY METAB OLIC PANEL calcium 9.2 mg/dL 8.6-10 .4 normal Not Available [address] [address] [place], [address], 02/15/2023 04:46:27 02/15/20 23 02/15/2023 COMPR EHENS FREDDY METAB OLIC PANEL protein, total 6.8 g/dL 6.1-8. 1 normal Not Available [address] [address] [place], [address], 02/15/2023 04:46:27 02/15/20 23 02/15/2023 COMPR EHENS FREDDY METAB OLIC PANEL albumin 4.2 g/dL 3.6-5. 1 normal Not Available [address] [address] [place], [address], 02/15/2023 04:46:27 02/15/20 23 02/15/2023 COMPR EHENS FREDDY METAB OLIC PANEL globulin 2.6 g/dL_ (calc ) 1.9-3. 7 normal Not Available [address] [address] [place], [address], 02/15/2023 04:46:27 02/15/20 23 02/15/2023 COMPR EHENS FREDDY METAB OLIC PANEL albumin/glob ulin ratio 1.6 (calc ) 1.0-2. 5 normal Not Available [address] [address] [place], [address], 02/15/2023 04:46:27 02/15/20 23 02/15/2023 COMPR EHENS FREDDY METAB OLIC PANEL bilirubin, total 0.5 mg/dL 0.2-1. 2 normal Not Available [address], [address], 02/15/2023 04:46:27 02/15/20 23 02/15/2023 COMPR EHENS FREDDY METAB OLIC PANEL alkaline phosphatase 81 U/L 37-153 normal Not Available [address] [address] [place], [address], 02/15/2023 04:46:27 02/15/20 23 02/15/2023 COMPR EHENS FREDDY METAB OLIC PANEL AST 14 U/L 10-35 normal Not Available [address], [address], 02/15/2023 04:46:27 02/15/20 23 02/15/2023 COMPR EHENS FREDDY METAB OLIC PANEL ALT 17 U/L 6-29 normal Not Available [address] [place], [address], 02/15/2023 04:46:27 02/15/20 23 02/15/2023 CBC (INCL UDES DIFF/ PLT) white blood cell count 5.1 thous and/u L 3.8-10 .8 normal Not Available [address], [address], 02/15/2023 04:46:27 02/15/20 23 02/15/2023 CBC (INCL UDES DIFF/ PLT) red blood cell count 4.56 gabriela on/uL 3.80-5 .10 normal Not Available [address], [address], 02/15/2023 04:46:27 02/15/20 23 02/15/2023 CBC (INCL UDES DIFF/ PLT) hemoglobin 13.3 g/dL 11.7-1 5.5 normal Not Available [address], [address], 02/15/2023 04:46:27 02/15/20 23 02/15/2023 CBC (INCL UDES DIFF/ PLT) hematocrit 39.6 % 35.0-4 5.0 normal Not Available [address], [address], 02/15/2023 04:46:27 02/15/20 23 02/15/2023 CBC (INCL UDES DIFF/ PLT) MCV 86.8 fL 80.0-1 00.0 normal Not Available [address], [address], 02/15/2023 04:46:27 02/15/20 23 02/15/2023 CBC (INCL UDES DIFF/ PLT) MCH 29.2 pg 27.0-3 3.0 normal Not Available [address], [address], 02/15/2023 04:46:27 02/15/20 23 02/15/2023 CBC (INCL UDES DIFF/ PLT) MCHC 33.6 g/dL 32.0-3 6.0 normal Not Available [address], [address], 02/15/2023 04:46:27 02/15/20 23 02/15/2023 CBC (INCL UDES DIFF/ PLT) RDW 13.1 % 11.0-1 5.0 normal Not Available [address], [address], 02/15/2023 04:46:27 02/15/2002/15/2023 CBC (INCL UDES DIFF/ PLT) platelet count 226 thous and/u L 140-40 0 normal Not Available [address], [address], 02/15/2023 04:46:27 02/15/20 23 02/15/2023 CBC (INCL UDES DIFF/ PLT) MPV 10.3 fL 7.5-12 .5 normal Not Available [address], [address], 02/15/2023 04:46:27 02/15/20 23 02/15/2023 CBC (INCL UDES DIFF/ PLT) absolute neutrophils 2836 cells /uL 1500-7 800 normal Not Available [address], [address], 02/15/2023 04:46:27 02/15/20 23 02/15/2023 CBC (INCL UDES DIFF/ PLT) absolute lymphocytes 1469 cells /uL 850-39 00 normal Not Available [address], [address], 02/15/2023 04:46:27 02/15/20 23 02/15/2023 CBC (INCL UDES DIFF/ PLT) absolute monocytes 383 cells /uL 200-95 0 normal Not Available [address] [place], [address], 02/15/2023 04:46:27 02/15/2002/15/2023 CBC (INCL UDES DIFF/ PLT) absolute eosinophils 321 cells /uL 15-500 normal Not Available [facility] [address], [address], 02/15/2023 04:46:27 02/15/20 23 02/15/2023 CBC (INCL UDES DIFF/ PLT) absolute basophils 92 cells /uL 0-200 normal Not Available [facility] [address], [address], 02/15/2023 04:46:27 02/15/2002/15/2023 CBC (INCL UDES DIFF/ PLT) neutrophils 55.6 % normal Not Available [facility] [address], [address], 02/15/2023 04:46:27 02/15/20 23 02/15/2023 CBC (INCL UDES DIFF/ PLT) lymphocytes 28.8 % normal Not Available [facility] [address], [address], 02/15/2023 04:46:27 02/15/20 23 02/15/2023 CBC (INCL UDES DIFF/ PLT) monocytes 7.5 % normal Not Available [facility] [address], [address], 02/15/2023 04:46:27 02/15/20 23 02/15/2023 CBC (INCL UDES DIFF/ PLT) eosinophils 6.3 % normal Not Available [facility] [address], [address], 02/15/2023 04:46:27 02/15/20 23 02/15/2023 CBC (INCL UDES DIFF/ PLT) basophils 1.8 % normal Not Available [facility] [address] [place], [address], 02/15/2023 04:46:27 02/15/20 23 02/15/2023 VITAM IN B12/F OLATE , SERUM PANEL vitamin B12 487 pg/mL 200-11 00 normal Not Available [facility] [address] [address] [place], [address], 02/15/2023 04:46:28 02/15/20 23 02/15/2023 VITAM IN B12/F OLATE , SERUM PANEL folate, serum 12.9 NG/mL normal Refer ence Range Low: <3.4 Borde rline : 3.4-5 .4 Candelaria l: >5.4 Not Available [facility] [address] [address] [place], [address], 02/15/2023 04:46:28 02/15/2002/15/2023 VITAM IN D,25- OH,TO DYLAN,I A vitamin D,25-oh,tota l,ia 20 NG/mL 30-100 low Vitam in D Statu s 25-OH Vitam in D: Defic iency : <20 ng/mL Insuf ficie ncy: 20 - 29 ng/mL Optim al: > or = 30 ng/mL For 25-OH Vitam in D testi ng on patie nts on D2-jimenez pplem entat ion and patie nts for whom quant itati on of D2 and D3 fract ions is requi red, the [facility] e[facility](TM ) 25-OH VIT D, (D2,D 3), LC/MS /MS is recom shireen d: order code 95409 (ibis ents >2yrs ). See Note 1 Note 1 For addit ional infor sue ceballos refer to http: //carmen michelle ics.c om/fa q/FAQ 199 (This link is being provi ded for infor chuy marsh/ laureen mratinez purpo ses only. ) Not Available [facility] [address] [address] [place], [address], 02/15/2023 04:46:28 11/18/1911/21/2023 CULTU RE, URINE , ROUTI NE culture, urine, routine SEE NOTE CULTU RE, URINE , ROUTI NE Micro Numbe r: [id number] Test Statu s: Final Speci men Sourc e: Urine Speci men Quali ty: Adequ ate Resul t: 10,00 0-49, 000 CFU/m L of Non-u ropat hogen ic Gram posit freddy organ ism May repre sent colon izers from exter nal and inter nal genit prabha. No furth er testi ng (incl uding susce ptibi lity) will be perfo rmed. Not Available [facility] [address] [place], [address], 11/21/2023 01:58:11 11/19/19 24 11/19/2023 influ lokesh virus A + B + SARS- CoV-2 (COVI D19) Ag panel , rapid IA, upper respi rator y speci men Flu A negati ve Not Available In-Office Order Internal Use Only DO Not Attach Compendium DO Not Attach Compendium, Do Not Delete/merge, 11/19/2023 16:42:31 11/19/1911/19/2023 influ lokesh virus A + B + SARS- CoV-2 (COVI D19) Ag panel , rapid IA, upper respi rator y speci men Flu B negati ve Not Available In-Office Order Internal Use Only DO Not Attach Compendium DO Not Attach Compendium, Do Not Delete/merge, 11/19/2023 16:42:31 11/19/1911/19/2023 influ lokesh virus A + B + SARS- CoV-2 (COVI D19) Ag panel , rapid IA, upper respi rator y speci men Rapid SARS CoV 2 Ag, QL IA, respiratory specimen negati ve Not Available In-Office Order Internal Use Only DO Not Attach Compendium DO Not Attach Compendium, Do Not Delete/merge, 11/19/2023 16:42:31 11/19/1911/19/2023 urina lysis , dipst ick Leukocytes Negati ve Not Available In-Office Order Internal Use Only DO Not Attach Compendium DO Not Attach Compendium, Do Not Delete/merge, [id number] 11/19/2023 16:53:34 11/19/19 24 11/19/2023 urina lysis , dipst ick Nitrite negati ve Not Available In-Office Order Internal Use Only DO Not Attach Compendium DO Not Attach Compendium, Do Not Delete/merge, 11/19/2023 16:53:34 11/19/19 24 11/19/2023 urina lysis , dipst ick Urobilinogen .2 Not Available In-Of fice Order Internal Use Only DO Not Attach Compendium DO Not Attach Compendium, Do Not Delete/merge, 11/19/2023 16:53:34 11/19/1911/19/2023 urina lysis , dipst ick Protein Trace Not Available In-Office Order Internal Use Only DO Not Attach Compendium DO Not Attach Compendium, Do Not Delete/merge, [facility] 11/19/2023 16:53:34 11/19/19 24 11/19/2023 urina lysis , dipst ick pH 5.0 Not Available In-Office Order Internal Use Only DO Not Attach Compendium DO Not Attach Compendium, Do Not Delete/merge, [facility] 11/19/2023 16:53:34 11/19/19 24 11/19/2023 urina lysis , dipst ick Blood Non-He molyze d: Trace Not Available In-Office Order Internal Use Only DO Not Attach Compendium DO Not Attach Compendium, Do Not Delete/merge, [id number] 11/19/2023 16:53:34 11/19/19 24 11/19/2023 urina lysis , dipst ick Specific [place] 1.015 Not Available In-Off ice Order Internal Use Only DO Not Attach Compendium DO Not Attach Compendium, Do Not Delete/merge, [id number] 11/19/2023 16:53:34 11/19/19 24 11/19/2023 urina lysis , dipst ick Ketone Negati ve Not Available In-Office Order Internal Use Only DO Not Attach Compendium DO Not Attach Compendium, Do Not Delete/merge, 11/19/2023 16:53:34 11/19/19 24 11/19/2023 urina lysis , dipst ick Bilirubin Negati ve Not Available In-Office Order Internal Use Only DO Not Attach Compendium DO Not Attach Compendium, Do Not Delete/merge, 11/19/2023 16:53:34 11/19/19 24 11/19/2023 urina lysis , dipst ick Glucose Negati ve Not Available In-Office Order Internal Use Only DO Not Attach Compendium DO Not Attach Compendium, Do Not Delete/merge, 11/19/2023 16:53:34 11/19/19 24 11/19/2023 urina lysis , dipst ick Appearance Clear Not Available In-Offi ce Order Internal Use Only DO Not Attach Compendium DO Not Attach Compendium, Do Not Delete/merge, 11/19/2023 16:53:34 11/19/1911/19/2023 urina lysis , dipst ick Color Yellow Not Available In-Office Order Internal Use Only DO Not Attach Compendium DO Not Attach Compendium, Do Not Delete/merge, 11/19/2023 16:53:34 11/20/1911/20/2023 gluco se, finge rstic k, blood Blood Glucose: mg/dl 144 Not Available In-Off ice Order Internal Use Only DO Not Attach Compendium DO Not Attach Compendium, Do Not Delete/merge, 11/19/2023 17:26:01 11/20/19 24 11/20/2023 HbA1c (hemo globi n A1c), blood HbA1c 6.7 Not Available In-Office Order Internal Use Only DO Not Attach Compendium DO Not Attach Compendium, Do Not Delete/merge, 11/19/2023 17:26:02 02/16/20 24 02/19/2024 ALBUM IN, RANDO M URINE W/CRE ATINI NE creatinine, random urine 141 mg/dL 20-275 normal Not Available [facility] [address] [place], [address], 02/19/2024 15:01:00 02/16/20 24 02/19/2024 ALBUM IN, RANDO M URINE W/CRE ATINI NE albumin, urine 0.2 mg/dL see note: normal Refer ence Range : Refer ence Range Not estab lishe d Not Available [address] [address] [place], [address], 02/19/2024 15:01:00 02/16/20 24 02/19/2024 ALBUM IN, RANDO M URINE W/CRE ATINI NE albumin/crea tinine ratio, random urine 1 mg/g_ creat <30 normal The ADA defin es abnor malit ies in album in excre tion as follo ws: Album inuri a Categ ory Resul t (mg/g creat inine ) Candelaria l to Mildl y incre ased <30 Moder ately incre ased 30-29 9 Sever kulwinder incre ased > OR = 300 The ADA recom mends that at least two of three speci mens colle cted withi n a 3-6 month perio d be abnor mal befor e consi drake g a patie nt to be withi n a diagn ostic categ ory. Not Available [address] [address] [address] , [place], [address], 02/19/2024 15:01:00 02/16/20 24 02/19/2024 COMPR EHENS FREDDY METAB OLIC PANEL glucose 147 mg/dL 65-99 high Fasti ng refer ence inter aníbal For someo ne witho ut known diabe dickson, a gluco se value >125 mg/dL indic ates that they may have diabe dickson and this shoul d be confi rmed with a follo w-up test. Not Available [facility] [address] [address] [place], [address], 02/19/2024 15:01:01 02/16/20 24 02/19/2024 COMPR EHENS FREDDY METAB OLIC PANEL urea nitrogen (BUN) 22 mg/dL 7-25 normal Not Available [facility] [address] [address] [place], [address], 02/19/2024 15:01:01 02/16/20 24 02/19/2024 COMPR EHENS FREDDY METAB OLIC PANEL creatinine 0.91 mg/dL 0.50-1 .05 normal Not Available [facility] [address] [address] [place], [address], 02/19/2024 15:01:01 02/16/20 24 02/19/2024 COMPR EHENS FREDDY METAB OLIC PANEL eGFR 70 mL/mi n/1.7 3m2 > or = 60 normal Not Available [facility] [address], [address], 02/19/2024 15:01:01 02/16/20 24 02/19/2024 COMPR EHENS FREDDY METAB OLIC PANEL BUN/creatini ne ratio SEE NOTE: (calc ) 6-22 Not Repor deb: BUN and Creat inine are withi n refer ence range . Not Available [address], [address], 02/19/2024 15:01:01 02/16/20 24 02/19/2024 COMPR EHENS FREDDY METAB OLIC PANEL sodium 140 mmol/ L 135-14 6 normal Not Available [facility] [address], [address], 02/19/2024 15:01:01 02/16/20 24 02/19/2024 COMPR EHENS FREDDY METAB OLIC PANEL potassium 4.6 mmol/ L 3.5-5. 3 normal Not Available [facility] [address], [address], 02/19/2024 15:01:01 02/16/20 24 02/19/2024 COMPR EHENS FREDDY METAB OLIC PANEL chloride 103 mmol/ L 98-110 normal Not Available [facility] [address] [address] [place], [address], 02/19/2024 15:01:01 02/16/20 24 02/19/2024 COMPR EHENS FREDDY METAB OLIC PANEL carbon dioxide 28 mmol/ L 20-32 normal Not Available [address], [address], 02/19/2024 15:01:01 02/16/20 24 02/19/2024 COMPR EHENS FREDDY METAB OLIC PANEL calcium 9.5 mg/dL 8.6-10 .4 normal Not Available [address], [address], 02/19/2024 15:01:01 02/16/20 24 02/19/2024 COMPR EHENS FREDDY METAB OLIC PANEL protein, total 6.6 g/dL 6.1-8. 1 normal Not Available [address], [address], 02/19/2024 15:01:01 02/16/20 24 02/19/2024 COMPR EHENS FREDDY METAB OLIC PANEL albumin 4.1 g/dL 3.6-5. 1 normal Not Available [address], [address], 02/19/2024 15:01:01 02/16/20 24 02/19/2024 COMPR EHENS FREDDY METAB OLIC PANEL globulin 2.5 g/dL_ (calc ) 1.9-3. 7 normal Not Available [address], [address], 02/19/2024 15:01:01 02/16/20 24 02/19/2024 COMPR EHENS FREDDY METAB OLIC PANEL albumin/glob ulin ratio 1.6 (calc ) 1.0-2. 5 normal Not Available [address], [address], 02/19/2024 15:01:01 02/16/20 24 02/19/2024 COMPR EHENS FREDDY METAB OLIC PANEL bilirubin, total 0.3 mg/dL 0.2-1. 2 normal Not Available [address], [address], 02/19/2024 15:01:01 02/16/20 24 02/19/2024 COMPR EHENS FREDDY METAB OLIC PANEL alkaline phosphatase 93 U/L 37-153 normal Not Available [facility] [address], [address], 02/19/2024 15:01:01 02/16/20 24 02/19/2024 COMPR EHENS FREDDY METAB OLIC PANEL AST 14 U/L 10-35 normal Not Available [address], [address], 02/19/2024 15:01:01 02/16/20 24 02/19/2024 COMPR EHENS FREDDY METAB OLIC PANEL ALT 17 U/L 6-29 normal Not Available [address], [address], 02/19/2024 15:01:01 02/16/20 24 02/19/2024 CBC (INCL UDES DIFF/ PLT) white blood cell count 6.1 thous and/u L 3.8-10 .8 normal Not Available [address], [address], 02/19/2024 15:01:03 02/16/20 24 02/19/2024 CBC (INCL UDES DIFF/ PLT) red blood cell count 4.66 gabriela on/uL 3.80-5 .10 normal Not Available [address], [address], 02/19/2024 15:01:03 02/16/20 24 02/19/2024 CBC (INCL UDES DIFF/ PLT) hemoglobin 13.3 g/dL 11.7-1 5.5 normal Not Available [facility] [address], [address], 02/19/2024 15:01:03 02/16/20 24 02/19/2024 CBC (INCL UDES DIFF/ PLT) hematocrit 40.6 % 35.0-4 5.0 normal Not Available [address], [address], 02/19/2024 15:01:03 02/16/20 24 02/19/2024 CBC (INCL UDES DIFF/ PLT) MCV 87.1 fL 80.0-1 00.0 normal Not Available [facility] [address], [address], 02/19/2024 15:01:03 02/16/2002/19/2024 CBC (INCL UDES DIFF/ PLT) MCH 28.5 pg 27.0-3 3.0 normal Not Available [address], [address], 02/19/2024 15:01:03 02/16/20 24 02/19/2024 CBC (INCL UDES DIFF/ PLT) MCHC 32.8 g/dL 32.0-3 6.0 normal For adult s, a sligh t decre ase in the calcu lated MCHC value (in the range of 30 to 32 g/dL) is most likel y not clini nawaf signi ficred t; abhishek er, it shoul d be inter prete d with cauti on in corre latio n with other red cell jonny eters and the patie nt's clini dianna condi tion. Not Available [address], [address], 02/19/2024 15:01:03 02/16/20 24 02/19/2024 CBC (INCL UDES DIFF/ PLT) RDW 13.1 % 11.0-1 5.0 normal Not Available [address], [address], 02/19/2024 15:01:03 02/16/20 24 02/19/2024 CBC (INCL UDES DIFF/ PLT) platelet count 216 thous and/u L 140-40 0 normal Not Available [address], [address], 02/19/2024 15:01:03 02/16/20 24 02/19/2024 CBC (INCL UDES DIFF/ PLT) MPV 10.6 fL 7.5-12 .5 normal Not Available [address], [address], 02/19/2024 15:01:03 02/16/20 24 02/19/2024 CBC (INCL UDES DIFF/ PLT) absolute neutrophils 3739 cells /uL 1500-7 800 normal Not Available [address], [address], 02/19/2024 15:01:03 02/16/20 24 02/19/2024 CBC (INCL UDES DIFF/ PLT) absolute lymphocytes 1440 cells /uL 850-39 00 normal Not Available [address], [address], 02/19/2024 15:01:03 02/16/20 24 02/19/2024 CBC (INCL UDES DIFF/ PLT) absolute monocytes 525 cells /uL 200-95 0 normal Not Available [address], [address], 02/19/2024 15:01:03 02/16/20 24 02/19/2024 CBC (INCL UDES DIFF/ PLT) absolute eosinophils 305 cells /uL 15-500 normal Not Available [address], [address], 02/19/2024 15:01:03 02/16/20 24 02/19/2024 CBC (INCL UDES DIFF/ PLT) absolute basophils 92 cells /uL 0-200 normal Not Available [address] [place], [address], 02/19/2024 15:01:03 02/16/20 24 02/19/2024 CBC (INCL UDES DIFF/ PLT) neutrophils 61.3 % normal Not Available [address], [address], 02/19/2024 15:01:03 02/16/20 24 02/19/2024 CBC (INCL UDES DIFF/ PLT) lymphocytes 23.6 % normal Not Available [address], [address], 02/19/2024 15:01:03 02/16/20 24 02/19/2024 CBC (INCL UDES DIFF/ PLT) monocytes 8.6 % normal Not Available [address], [address], 02/19/2024 15:01:03 02/16/20 24 02/19/2024 CBC (INCL UDES DIFF/ PLT) eosinophils 5.0 % normal Not Available [address], [address], 02/19/2024 15:01:03 02/16/20 24 02/19/2024 CBC (INCL UDES DIFF/ PLT) basophils 1.5 % normal Not Available [address], [address], 02/19/2024 15:01:03 02/16/20 24 02/19/2024 TSH W/REF MICHELLE TO FT4 TSH w/reflex to FT4 1.85 mIU/L 0.40-4 .50 normal Not Available [address], [address], 02/19/2024 15:01:04 02/16/20 24 02/16/2024 HbA1c (hemo globi n A1c), blood HbA1c 6.7 Not Available In-Office Order Internal Use Only DO Not Attach Compendium DO Not Attach Compendium, Do Not Delete/merge, [id number] 02/16/2024 09:40:41 09/08/1909/08/2024 LIPID PANEL , STAND SLY cholesterol, total 220 mg/dL <200 high Not Available [address] [address] [place], [address], 09/08/2024 11:09:56 09/08/1909/08/2024 LIPID PANEL , STAND SLY HDL cholesterol 54 mg/dL > or = 50 normal Not Available [address] [address] [place], [address], 09/08/2024 11:09:56 09/08/1909/08/2024 LIPID PANEL , STAND SLY triglyceride s 234 mg/dL <150 high If a non-f astin g speci men was colle cted, consi naida repea t trigl yceri de testi ng on a fasti ng speci men if clini nawaf indic ated. Shane mckeon et al. J. of Clin. Lipid ol. 2015; 9:129 -169. Not Available [address], [address], 09/08/2024 11:09:56 09/08/1909/08/2024 LIPID PANEL , STAND SLY LDL-choleste rol 128 mg/dL _(dianna c) high Refer ence range : <100 David able range <100 mg/dL for prima ry preve ntion ; <70 mg/dL for patie nts with CHD or diabe tic patie nts with > or = 2 CHD risk facto rs. LDL-C is now calcu lated using the Concetta n-Hop kins rinkuu samra n, which is a valid ated novel frieda solis than the Fried chastity equat ion in the estim ation of LDL-C . Concetta spence SS et al. SUNNI. 2013; 310(1 9): 2061- 2068 (http ://ed ucati on.Qu estDi Easyclass.com. com/f aq/FA Q164) Not Available [facility] [address] [place], [address], 09/08/2024 11:09:56 09/08/1909/08/2024 LIPID PANEL , STAND SLY chol/HDLC ratio 4.1 (calc ) <5.0 normal Not Available [facility] [address] [place], [address], 09/08/2024 11:09:56 09/08/1909/08/2024 LIPID PANEL , STAND SLY non HDL cholesterol 166 mg/dL _(dianna c) <130 high For patie nts with diabe dickson plus 1 major ASCVD risk facto r, treat ing to a non-H DL-C goal of <100 mg/dL (LDL- C of <70 mg/dL ) is consi dered a thera peuti c optio n. Not Available [address] [place], [address], 09/08/2024 11:09:56 09/08/1909/08/2024 HIV 1/2 ANTIG EN/AN TIBOD Y,FOU RTH GENER ATION W/RFL HIV final interpretati on HIV Negat freddy HIV-1 antig en and HIV-1 /HIV- 2 antib odies were not detec deb. There is no labor atory evide nce of HIV infec tion. Not Available [facility] [address] [address] [place], [address], 09/08/2024 11:09:58 09/08/1909/08/2024 HIV 1/2 ANTIG EN/AN TIBOD Y,FOU RTH GENER ATION W/RFL HIV Ag/Ab, 4TH gen NON-RE ACTIVE non-re active normal Not Available [address] [address] [place], [address], 09/08/2024 11:09:58 09/08/1909/08/2024 HEPAT ITIS C AB W/REF L TO HCV RNA, QN, PCR hepatitis C antibody NON-RE ACTIVE non-re active normal HCV antib yonis was non-r eacti ve. There is no labor atory evide nce of HCV infec tion. In most cases , no furth er actio n is requi red. Howev er, if recen t HCV expos ure is suspe cted, a test for HCV RNA (test code 41948 ) is sugge sted. For addit ional infor chuy rogers e refer to http: //[facility].alicja stdia gnost ics.c om/fa q/FAQ 22v1 (This link is being provi ded for infor matio nal/ educa wen l purpo ses only. ) Not Available [facility] [address] [address] [place], [address], 09/08/2024 11:09:59 09/08/19 25 09/08/2024 VITAM IN D,25- OH,TO DYLAN,I A vitamin D,25-oh,tota l,ia 24 NG/mL 30-100 low Vitam in D Statu s 25-OH Vitam in D: Defic iency : <20 ng/mL Insuf ficie ncy: 20 - 29 ng/mL Optim al: > or = 30 ng/mL For 25-OH Vitam in D testi ng on patie nts on D2-jimenez pplem entat ion and patie nts for whom quant itati on of D2 and D3 fract ions is requi red, the [facility] e[facility](TM ) 25-OH VIT D, (D2,D 3), LC/MS /MS is recom shireen d: order code 88465 (ibis ents >2yrs ). See Note 1 Note 1 For addit ional infor sue ceballos e refer to http: //[facility] centerEdison stDia gnost ics.c om/fa q/FAQ 199 (This link is being provi ded for infor matio nal/ educa wen l purpo ses only. ) Not Available [facility] [address] [address] [place], [address], 09/08/2024 11:10:00 09/08/19 25 09/07/2024 HbA1c (hemo globi n A1c), blood HbA1C 6.3 % Not Available In-Office Order Internal Use Only DO Not Attach Compendium DO Not Attach Compendium, Do Not Delete/merge, [id number] 09/07/2024 12:11:11 10/15/19 25 10/12/2024 MRI, knee, w/o contr ast No observ ation record ed. [facility] [address], [place], [address], 10/14/2024 14:31:23 Result Notes None recorded. Problems Name Problem SNOMED Code Status Onset Date Resolution Date Notes Provider Name and Address Organization Details Recorded Time Gastroes ophageal reflux disease 325238311 Active 2013 Not Available [facility] 4 11:02:00 Mixed anxiety and depressi ve disorder 937604263 Active 2020 Not Available [facility] 4 11:02:00 Migraine 74762450 Active 2020 variant Not Available [facility] 4 11:02:00 Sleep disorder 73303729 Active 2020 Not Available [facility] 4 11:02:00 Body mass index 30+ - obesity 688280549 Active 2021 Not Available [facility] 4 11:02:00 Allergic rhinitis 76430353 Active 2021 Not Available [facility] 4 11:02:00 Benign paroxysm al position al vertigo 054080025 Completed 202110/24/2022 Ludin Casanova MD Attn: Accounting ,[address] [place], [address] , [facility] 3 19:22:30 Rash of groin 06461519709 504158 Completed 202110/24/2022 Ludin Casanova MD Attn: Accounting ,[address] [place], [address] , [facility] 3 19:22:34 Vitamin D deficien 81809772 Active 2022 Not Available [facility] 4 11:02:00 Mixed hyperlip idemia 619967450 Active 2022 Not Available [facility] 4 11:02:00 Acute hemorrha gic cystitis 92236838 Completed 202204/19/2023 Ludin Casanova MD Attn: Accounting ,[address] [facility] [place], [address] , [place] [facility] 4 11:14:20 Dysfunct ion of eustachi an tube 74925925 Completed 202204/19/2023 Ludin Casanova MD Attn: Accounting ,[address] [place], [address] , [place] [facility] 4 11:14:27 Well controll ed type 2 diabetes mellitus 604978579 Active 2024 VAN Loomis Attn: Accounting ,[address] [place], [address] , [place] [facility] 5 12:06:04 Problem Notes None recorded. Procedures Surgical History Date Name Laterality Status Provider Name and Address Organization Details Recorded Time 01/30/20 19 colonoscopy completed Rip Bashir MA [place] - [facility] 02/12/2019 14:31:44 05/26/19 18 [facility] 10/01/2017 10:50:04 12/26/19 03 Hysterectomy completed Bisi Salinas PA - [facility] 09/16/2018 13:22:11 02/24/18 76 [facility]illect[facility] 10/01/2017 09:16:52 Imaging Results None recorded. Procedure Notes None recorded. Medical Equipment None Reported. Allergies Allergen ID Allergen Name Allergen Category Reaction Reaction Severity Criticality Documentation Date Start Date Code Code System Note Provider Name and Address Organization Details Recorded Time 51056 Levaquin medicatio n Not available Not available Not available 01/12/2016 85652 2 RxNorm Ana gutiérrez [place] - [facility] 6 15:04:00 19709 pantopraz ole medicatio n Not available Not available Not available 01/12/2016 03180 RxNorm Sayra Lucas ma [facility], [facility] 7 16:38:08 19672 Product containin g penicilli n (product) medicatio n Not available Not available Not available 01/12/2016 24464 8001 SNOMED Ana Michelle [facility], [facility] 6 15:04:18 45387 pantopraz ole sodium medicatio n rash moderate Not available 02/28/20162013 57204 1 RxNorm React ion: rash; Sever ity: Moder ate; Comme nt: She takes Brand Name Only; Aller gy Type: Aller gy; Not Available [facility] 7 03:47:27 Medications Name Sig Start Date Stop Date Status Note LastModified by Organization Details LastModified Time cyclobenzap rine 10 mg tablet Take 1 tablet 3 times a day by oral route as needed. 11/30 completed Not Available Not Available Not Available clindamycin HCl 300 mg capsule TAKE 1 CAPSULE BY MOUTH THREE TIMES A DAY FOR 10 DAYS 02/13 completed Not Available Not Available Not Available azithromyci n 250 mg tablet TAKE 2 TABLETS BY MOUTH TODAY, THEN TAKE 1 TABLET DAILY FOR 4 DAYS DIRECTED 11/18 completed Not Available Not Available Not Available fluconazole 150 mg tablet TAKE 1 TABLET BY MOUTH FOR 1 DOSE 12/02 completed Not Available Not Available Not Available benzonatate 200 mg capsule TAKE 1 CAPSULE BY MOUTH THREE TIMES A DAY FOR 10 DAYS 02/15 completed Not Available Not Available Not Available citalopram 10 mg tablet Take 1 tablet every day by oral route. 08/09 completed Not Available Not Available Not Available hydrocodone 5 mg-acetamin ophen 325 mg tablet 10/01 completed Not Available Not Available Not Available meloxicam 15 mg tablet TAKE 1 TABLET BY MOUTH EVERY DAY 07/20 completed Not Available Not Available Not Available sucralfate 1 gram tablet Take 1 tablet 4 times a day by oral route as needed. 02/25 completed Not Available Not Available Not Available phenazopyri dine 200 mg tablet Take 1 tablet 3 times a day by oral route for 2 days. 04/19 completed Not Available Not Available Not Available sumatriptan 25 mg tablet TAKE 1 TAB BY MOUTH ONCE AT FIRST SIGN OF MIGRAINE. MAY REPEAT ONE TIME AFTER 1 HOURS IF NEEDED 01/22 completed Not Available Not Available Not Available metronidazo le 0.75 % (37.5 mg/5 gram) vaginal gel INSERT 1 APPLICATO RFUL INTO VAGINA EVERY NIGHT AT BEDTIME 02/15 completed Not Available Not Available Not Available famotidine 40 mg tablet TAKE 1 TABLET EVERY DAY BY ORAL ROUTE IN THE EVENING FOR 15 DAYS. 10/24 completed Not Available Not Available Not Available prednisone 20 mg tablet PLEASE SEE ATTACHED FOR DETAILED DIRECTION S 11/18 completed Not Available Not Available Not Available promethazin e 6.25 mg-codeine 10 mg/5 mL syrup TK 5 ML PO Q 6 H PRN 01/11 completed Not Available Not Available Not Available meclizine 12.5 mg tablet TAKE 1-2 TABLETS BY MOUTH UP TO 3 TIMES DAILY NEEDED FOR VERTIGO 07/20 completed Not Available Not Available Not Available ciprofloxac in 500 mg tablet TAKE 1 TABLET BY MOUTH EVERY 12 HOURS FOR 7 DAYS 02/15 completed Not Available Not Available Not Available sulfamethox azole 800 mg-trimetho prim 160 mg tablet TAKE 1 TABLET BY MOUTH TWICE A DAY 12/12 completed Not Available Not Available Not Available omeprazole 40 mg capsule,del ayed release one PO in AM 11/06 completed RxNor m: [id number] 9;All ow Subst ituti on: True Not Available Not Available Not Available pantoprazol e 20 mg tablet,sylvie yed release TAKE 1 TABLET BY MOUTH EVERY DAY IN THE MORNING active Not Available Not Available No t Available propranolol 10 mg tablet TAKE 1 TABLET BY MOUTH TWICE A DAY 01/21 completed Not Available Not Available Not Available methocarbam ol 750 mg tablet Take 1 tablet every day by oral route at bedtime. 09/07 completed Not Available Not Available Not Available meclizine 25 mg tablet Take 1 tablet 3 times a day by oral route as needed. 01/11 completed Not Available Not Available Not Available benzonatate 100 mg capsule TK 1 C PO TID 01/11 completed Not Available Not Available Not Available cephalexin 500 mg capsule Take 1 capsule every 8 hours by oral route for 10 days. 09/10 completed Not Available Not Available Not Available pantoprazol e 40 mg tablet,sylvie yed release TAKE ONE TABLET BY MOUTH EVERY DAY - RECOMMEND DECREASIN G TO 20MG WITH NEXT REFILL 02/15 completed Not Available Not Available Not Available clotrimazol e-betametha sone 1 %-0.05 % topical cream APPLY TWICE A DAY NEEDED FOR IRRITATIO N 01/22 completed Not Available Not Available Not Available polymyxin B sulfate 10,000 unit-trimet hoprim 1 mg/mL eye drops 10/01 completed Not Available Not Available Not Available triamterene 37.5 mg-hydrochl orothiazide 25 mg tablet Take 1 tablet every day by oral route for 7 days. 08/09 completed Not Available Not Available Not Available folic acid 1 mg tablet TAKE 1 TABLET BY MOUTH EVERY DAY 01/21 completed Not Available Not Available Not Available codeine 10 mg-guaifene sin 100 mg/5 mL oral liquid TAKE 5-10 ML BY MOUTH AT BEDTIME NEEDED FOR COUGH 04/19 completed Not Available Not Available Not Available diclofenac sodium 50 mg tablet,sylvie yed release 01/22 completed Not Available Not Available Not Available ergocalcife rol (vitamin D2) 1,250 mcg (50,000 unit) capsule TAKE 1 CAPSULE BY MOUTH EVERY 7 DAYS 09/10 completed Not Available Not Available Not Available methylpredn isolone 4 mg tablets in a dose pack Take 1 dose pk by oral route as directed. 09/10 completed Not Available Not Available Not Available albuterol sulfate HFA 90 mcg/actuati on aerosol inhaler INHALE 1 TO 2 PUFFS BY MOUTH EVERY 4 HOURS NEEDED WHEEZING FOR 10 DAYS active Not Available Not Available No t Available propranolol 20 mg tablet TAKE 1 TABLET BY MOUTH TWICE A DAY 02/15 completed Not Available Not Available Not Available cefdinir 300 mg capsule TAKE 1 CAPSULE BY MOUTH EVERY 12 HOURS FOR 7 DAYS 04/19 completed Not Available Not Available Not Available doxycycline hyclate 100 mg tablet 01/11 completed Not Available Not Available Not Available Vivelle-Dot 0.025 mg/24 hr transdermal patch Apply 1 patch(es) to lower abdomen 2 times weekly 08/23 completed RxNor m: [id number] 8;All ow Subst ituti on: True Not Available Not Available Not Available azithromyci n 500 mg tablet Take 1 tablet every day by oral route for 3 days. 02/13 completed Not Available Not Available Not Available nitrofurant oin monohydrate /macrocryst als 100 mg capsule TAKE 1 CAPSULE BY MOUTH TWICE A DAY FOR 7 DAYS 02/15 completed Not Available Not Available Not Available Zostavax (PF) 19,400 unit/0.65 mL subcutaneou s suspension [employer] [place] and administe r as directed in Prescribi ng Informati on 01/23 completed RxNor m: [id number] 35;Al low Subst ituti on: True Not Available Not Available Not Available Evamist 1.53 mg/spray (1.7 %) transdermal spray Apply 1 spray every day by topical route. 10/01 completed Not Available Not Available Not Available olopatadine 0.6 % nasal spray SPRAY 2 (TWO) SPRAYS INTO EACH NOSTRIL 2 TIMES DAILY active Not Available Not Available No t Available Suprep Bowel Prep Kit 17.5 gram-3.13 gram-1.6 gram oral solution 01/11 completed Not Available Not Available Not Available loratadine 10 mg capsule Take 1 capsule every day by oral route. 01/11 completed Not Available Not Available Not Available Fluzone Quad (PF) 60 mcg (15 mcg x 4)/0.5 mL IM syringe PHARMACY ADMINISTE RED 01/11 completed Not Available Not Available Not Available Paxlovid 300 mg (150 mg x 2)-100 mg tablets in a dose pack TAKE 3 TABLETS BY MOUTH TWICE A DAY FOR 5 DAYS DIRECTED ON PACKAGE INSTRUCTI ONS 11/18 completed Not Available Not Available Not Available Vitals Date Recorded Body height Body mass index (BMI) Body weight Oxygen saturation Oxygen saturation in Arterial blood by Pulse oximetry Heart rate Body temperature Systolic And Diastolic Provider Name and Address Organization Details Last Updated DateTime 5 170.18 cm 32 kg/m2 47453.8 4 g 97 % 97 % 73 /min 98 [degF] 109/73 mm[Hg] Luz Hernandez MA [facility] 5 10:24:49 Date Recorded Body height Body mass index (BMI) Body weight Body temperature Oxygen saturation Oxygen saturation in Arterial blood by Pulse oximetry Heart rate Systolic And Diastolic Provider Name and Address Organization Details Last Updated DateTime 5 170.18 cm 32.5 kg/m2 65234.7 2 g 97.9 [degF] 97 % 97 % 68 /min 117/74 mm[Hg] Sil Arroyo MA [facility] 5 11:33:48 Date Recorded Body height Body mass index (BMI) Body weight Body temperature Oxygen saturation Oxygen saturation in Arterial blood by Pulse oximetry Heart rate Systolic And Diastolic Provider Name and Address Organization Details Last Updated DateTime 4 170.18 cm 32 kg/m2 87731.9 4 g 98.7 [degF] 98 % 98 % 75 /min 105/71 mm[Hg] Gina Lugo MA [facility] 4 16:18:30 Date Recorded Body height Body temperature Body mass index (BMI) Body weight Oxygen saturation Oxygen saturation in Arterial blood by Pulse oximetry Heart rate Systolic And Diastolic Provider Name and Address Organization Details Last Updated DateTime 3 170.18 cm 97.7 [degF] 33.1 kg/m2 46628.7 1 g 98 % 98 % 80 /min 103/69 mm[Hg] Carla Rose MA [facility] 3 16:15:05 Date Recorded Body height Body mass index (BMI) Body weight Oxygen saturation Oxygen saturation in Arterial blood by Pulse oximetry Heart rate Body temperature Systolic And Diastolic Provider Name and Address Organization Details Last Updated DateTime 4 170.18 cm 32.1 kg/m2 95660.4 4 g 96 % 96 % 69 /min 98 [degF] 122/79 mm[Hg] Luz Hernandez MA [facility] 4 11:11:45 Social History Question Answer Notes LastModified by Organizat ion Details LastModified Time Tobacco Smoking Status Never Smoker Ana gutiérrez [facility] 01/12/2016 14:49:58 Do You Have An Advance Directive? No Information not available 07/03/2020 Are You Blind Or Do You Have Difficulty Seeing? No Information not available 07/03/2020 What Is Your Level Of Caffeine Consumption? None Information not available 01/21/2022 In The 14 Days Before Symptom Onset, Have You Had Close Contact With A Laboratory-confir med COVID-19 While That Case Was Ill? No Information not available 07/03/2020 In The 14 Days Before Symptom Onset, Have You Had Close Contact With A Person Who Is Under Investigation For COVID-19 While That Person Was Ill? No Information not available 07/03/2020 Have You Been To An Area Known To Be High Risk For COVID-19? No Information not available 07/03/2020 Are You Deaf Or Do You Have Serious Difficulty Hearing? No Information not available 07/03/2020 What Type Of Diet Are You Following? REGULAR Low Sodium Information not available 07/03/2020 What Was The Date Of Your Most Recent Tobacco Screening? 09/07/2024 [email or web address] Information not available 09/07/2024 What Is Your Relationship Status? Information not available 07/03/2020 Do You Use Your Seat Belt Or Car Seat Routinely? No Information not available 04/17/2020 Do You Have Smoke And Carbon Monoxide Detectors In Your Home? Yes Information not available 07/03/2020 Are You Passively Exposed To Smoke? No Information no t available 07/03/2020 Has Tobacco Cessation Counseling Been Provided? No Information not available 04/17/2020 Sex: Female Functional Status Question Answer Note LastModified by OrganAtzipat ion Details LastModified Time Do you use any illicit or recreational drugs? No Information not available 04/17/2020 Do you or have you ever used any other forms of tobacco or nicotine? No Information not available 04/17/2020 What is your level of alcohol consumption? None Information not available 04/17/2020 Are you currently employed? No Information not available 07/03/2020 Are you able to care for yourself independently? Yes Information not available 07/03/2020 What is your exercise level? None Information not available 07/20/2024 Mental Status Question Answer Note LastModified by Organization D etails LastModified Time Do you feel stressed (tense, restless, nervous, or anxious, or unable to sleep at night)? [id number] Information not available 04/17/2020 Family History Relationship Description Onset Age of this Age Resolved Age Notes LastModified by Organization Details LastModified Time Father Harmful pattern of use of alcohol hreedma Not available 2015 14:50:06 Mother Diabetes mellitus hreedma Not available 2015 14:50:12 Mother Gallstone [email or web address] Not avai lable 10/01/2017 09:17:48 Sister Osteoporosis hreedma Not availa ble 01/12/2016 14:50:20 Paternal Grandmother Malignant neoplasm of breast ssadlowskima Not available 09/2017 09:17:40 Medical History Condition Response Anxiety Disorder Y Acid Reflux (GERD) Y Allergies Y High Cholesterol Y Gynecological History Statement/Question Response Menses Monthly N Obstetrics History GPAL:G 1 P 1 0 0 0 Type Value Full Term 1 Total 1 Immunizations Vaccine Type Date Status Note Provider Nam e and Address Organization Details Recorded Time Influenza, split virus, quadrivalent, preservative 9 completed Josephine gutiér[place], [place] - [facility] 03/03/2023 10:29:45 Influenza, split virus, quadrivalent, preservative 0 completed [place] [facility] 03/03/2023 10:29:45 COVID-19, mRNA, LNP-S, PF, 30 mcg/0.3 mL dose 1 completed [place] [facility] 03/03/2023 10:29:45 COVID-19, mRNA, LNP-S, PF, 30 mcg/0.3 mL dose 1 completed [place] [facility] 03/03/2023 10:29:45 Influenza, split virus, quadrivalent, preservative 1 completed [place] [facility] 03/03/2023 10:29:45 COVID-19, mRNA, LNP-S, PF, 30 mcg/0.3 mL dose 1 completed [place] [facility] 03/03/2023 10:29:45 Influenza, MDCK, quadrivalent, preservative 2 completed [place]ine [place] [facility] 03/03/2023 10:29:45 Influenza, split virus, quadrivalent, preservative 6 completed Not Available [facility] 03/13/2019 02:32:38 Influenza, MDCK, quadrivalent, PF 4 completed Josephine gutiérrez, [place] - [facility] 03/12/2023 21:10:46 Influenza, high-dose, trivalent, PF 4 completed [place]rez[place] [facility] 02/06/2024 17:29:50 Influenza, MDCK, quadrivalent, preservative 9 completed Not Available [facility] 09/07/2024 11:11:15 Tdap 6 completed Josephine gutiérrez, [place] - [facility] 03/03/2023 10:29:45 Td (adult), 2 Lf tetanus toxoid, preservative free, adsorbed 5 completed [place]ine gut[place] [facility] 03/03/2023 10:29:45 Pneumococcal conjugate PCV20, polysaccharide [id number] conjugate, adjuvant, PF 5 completed MYKE Ledbetter, [place] - [facility] 09/07/2024 13:06:50 influenza, unspecified formulation 8 completed Josephine gutiérrez, [place] - [facility] 03/03/2023 10:29:45 Past Encounters Encounter ID Performer Location Encounter Start Date Encounter Closed Date Diagnosis/Indication Diagnosis SNOMED-CT Code Diagnosis ICD10 Code Diagnosis IMO Codes Diagnosis Note [id number] Bisi Salinas MD [facility] [address] [place] [address] 01/12/2016 14:30:16 01/16/2016 10:32:15 Administration of influenza vaccine 54247103 Z23 Thigh pain 48842088 M79. 651 in XR normal and patient calls back refer to PT [id number] Iris Irving MD [facility] [address] [place] [address] 11/28/2016 15:58:27 12/02/2016 12:08:47 Acute sinusitis 71066436 J01.90 Impacted cerumen 9859146 6 H61.21 [id number] Phong Rubio MD [facility] [address] [place] [address] 10/01/2017 10:37:42 10/02/2017 10:54:56 Acute gastritis 73858798 K29.00 Viral gastroenteritis 11 9537673 A08.4 Diarrhea 87376784 R19.7 [id number] Bisi Salinas MD [facility] [address] [place] [address] 02/25/2018 11:25:22 02/26/2018 08:47:44 Adult health examination 891301838 Z00.00 Loss of hair 604306751 L 65.9 Injury of left foot 1185 191603 3913828 S99.922A Tinea corporis 91749224 B35.4 Hyperlipid emia screening 342069734 Z13.220 Bilateral chronic serous otitis 012651796 H65.23 [id number] Bisi Salinas MD [facility] [address] [place] [address] 09/16/2018 11:20:32 09/16/2018 13:51:57 Right lower quadrant pain 602785058 R10.31 [id number] VAN Loomis [facility] [address] [place] [address] 01/13/2019 10:53:05 01/13/2019 14:03:19 Benign paroxysmal positional vertigo 130459760 H81.13 start vitaliy's after some improvemen t, daily until symptoms gone. If no better or worse will call for vestibular PT. and consider brain scan Serous otitis media 8032 7007 H65.03 [id number] Bisi Salinas MD [facility] [address] [place] [address] 02/12/2019 14:02:51 02/15/2019 09:27:03 Acute maxillary sinusitis 54829308 J01.00 Persistent cough 8734515 02 R05 Upper resp iratory infection 62877992 J06.9 [id number] Bisi Salinas MD [facility] [address] [place] [address] 01/12/2020 14:25:05 01/12/2020 16:18:55 Acute maxillary sinusitis 24508179 J01.00 [id number] Bisi Salinas MD [facility] [address] [place] [address] 04/17/2020 13:48:55 04/17/2020 16:08:03 Vertigo 395317025 R42 Acute maxi llary sinusitis 65097196 J01.00 Muscle spa sm of cervical muscle of neck 2841341948 04 M62.838 Hyperlipidemia 15707084 E78.5 [id number] Bisi Salinas MD [facility] [address] [place] [address] 05/03/2020 09:56:53 05/03/2020 16:03:24 Vertigo 933728598 R42 Mixed anxi ety and depressive disorder 601407992 F41.8 [id number] Bisi Salinas MD [facility] [address] [place] [address] 07/03/2020 10:05:20 07/03/2020 20:37:20 Gastroesophageal reflux disease 597631163 K21.9 continue OTC prilosec Mixed anxi ety and depressive disorder 494664669 F41.8 Vertigo 444707198 R42 Esophageal dysphagia 408 28896 R13.19 [id number] Bisi Salinas MD [facility] [address] [place] [address] 08/09/2020 13:04:13 08/09/2020 16:00:45 Acute sinusitis 97250179 J01.90 saline nasal spray several times a day, ok to continue antihistam ine and sudafed if helping, call if no better. covid vaccinated [id number] Bisi Salinas MD [facility] [address] [place] [address] 11/30/2020 10:37:38 12/01/2020 14:36:53 Acute sinusitis 01980401 J01.90 saline nasal spray several times a day, ok to continue antihistam ine and sudafed if helping, call if no better. covid vaccinated . I told her to go get tested if any fevers, lost of taste or smell, or just to know if she has it since her booster COVID vaccine is coming up eligible. In the mean time, isolate from others and good hand sanitizing measures discussed. [id number] Bisi Salinas MD [facility] [address] [place] [address] 12/18/2020 10:30:04 12/18/2020 17:04:52 Acute maxillary sinusitis 82058961 J01.00 [id number] VAN Loomis [facility] [address] [place] [address] 09/10/2021 12:13:59 09/10/2021 16:26:00 Upper respiratory infection 39018488 J06.9 she agrees to take her home COVID test, she is fully vaccinate with first booster, no second booster yet. No SOB or fevers documented . If positive she will likely accept paxlovid, if negative I will offer antibiotic s due to her history of sinus issues and production of thick purulent drainage. [id number] Ludin Casanova MD [facility] [address] [place] [address] 12/12/2021 10:46:47 12/12/2021 15:32:50 Benign paroxysmal positional vertigo 713050619 H81.12 - current symptoms and examinatio n most consistent with benign paroxysmal positional vertigo- handout provided describing pathophysi ology, reviewed with patient- Crowell-Deejay off maneuvers reviewed, as well as half-boris sault maneuvers- meclizine for symptom-re liefPatien t to call if not improving in 10-14 days.Patie nt voices understand ing and agreement with plan. Long-term drug therapy 942409474 Z79.899 Check routine labwork for ongoing long-term medication use. Migraine 27055790 G43.90 9 - tolerating increased dose well- management per ENT at this time- recommende d acute therapy with non-steroi fidelia anti-infla mmatory drugs for any acute symptoms- reviewed brief orthostati c hypotensio n related to beta arturo use [id number] Ludin Casanova MD [facility] [address] [place] [address] 01/21/2022 14:40:17 01/22/2022 11:57:33 Sore throat 002887087 J02.9 Upper resp iratory infection 81291179 J06.9 # URILikely viral.Reas surance. Supportive care.Incre ase fluid intake, rest.Oral corticoste roids for anti-infla mmatory effectOTC decongesta nt. pseudoephe drnolberto, Benadryl. - monitor pulseTo call if not improved over the next several days, or if getting worse.Ibis ent voices understand ing and agreement with plan. [id number] Ludin Casanova MD [facility] [address] [place] [address] 12/02/2022 14:56:26 12/03/2022 10:48:25 Suspected COVID-19 019296572 Z20.822 - negative rapid covid testing Upper resp iratory infection 16543232 J06.9 # URILikely viral.Reas surance. Supportive care.Incre ase fluid intake, rest.Oral corticoste roids for anti-infla mmatory effectOTC decongesta nt. pseudoephe drine, Benadryl. - monitor pulseBacku p antibiotic with 3-day course of azithromyc incodeine cough syrupTo call if not improved over the next several days, or if getting worse.Ibis ent voices understand ing and agreement with plan. [id number] Ludin Casanova MD [facility] [address] [place] [address] 01/22/2023 13:43:21 01/26/2023 10:52:50 Upper respiratory infection 84362985 J06.9 # URILikely viral.Reas surance. Supportive care.Incre ase fluid intake, rest.Oral corticoste roids for anti-infla mmatory effectOTC decongesta nt. pseudoephe drine, Benadryl. - monitor pulseBacku p antibiotic with 3-day course of azithromyc incodeine cough syrupTo call if not improved over the next several days, or if getting worse.Ibis ent voices understand ing and agreement with plan. [id number] Ludin Casanova MD [facility] [address] [facility] [address] 02/13/2023 15:27:12 02/14/2023 10:28:06 Urinary symptoms 550553103 R39.9 - dysuria Acute hemo rrhagic cystitis 60355744 N30.01 # UTI, uncomplica deb Urine dipstick: + leukocyte esterase, + nitrates, + blood Start empiric antibiotic Cefdinir 300 mg bid x 5 days Consider cranberry juice for symptom-re lief Phenazopyr idine 200 mg 3 times daily x 2 days if needed for comfort (turns urine orange, sometimes can affect contact lenses) Await urine culture results Call if not improving in 48 hoursPatie nt voices understand ing and agreement with plan Gastroesop hageal reflux disease 898517206 K21.9 - continue proton pump inhibitor, add H2 arturo, consider stopping/d ecreasing meloxicam Long-term drug therapy 302282665 Z79.899 Check routine labwork for ongoing long-term medication use. Vitamin D deficiency 347 20260 E55.9 Mixed hyperlipidemia 267 864708 E78.2 Dysfunctio n of eustachian tube 10244568 H69.92 - handout provided- consider ent follow-up if persistent [id number] Ludin Casanova MD [facility] [address] [place] [address] 11/19/2023 15:40:23 11/20/2023 11:19:36 Fever 367120043 R50.9 Excessive thirst 5855507 7 R63.1 Nocturia 128555970 R35.1 Acute pyelonephritis 366 30251 N10 REviewed her C&S, only other option other than nitrofuran toin is quinolones . She is not sure she is allergic to levaquin, does not recall reaction. She wants to try cipro, I told her to discontinu e immediatel y if any rashes. Continue to push fluids, watch for fevers, N/V, increasing pain, chills etc. Will await new culture and be in touch with her on Friday Type 2 phyllis betes mellitus 59816278 E11.9 new onset diabetes. Discussed with patient the pathophysi ology of type II diabetes and insulin resistance . Discussed the potential complicati ons and vascular compromise of uncontroll ed blood sugars, such as stroke, CAD, retinopath y and kidney disease. We reviewed current HgA1C and goal of <7 A1C which she is already achieved. Lipid goals discussed. We discussed in great length carb counting, label reading and her daily carbohydra te goals. Choosing healthy carbs like fruits, veggies, whole grains, and lean proteins. Avoiding any sugar in beverages, and how exercise is important in maintainin g healthy blood sugars and a healthier weight. We spent more than 25 minutes in this counseling session. [id number] Iris Irving MD [facility] [address] [place] [address] 02/16/2024 10:41:48 02/23/2024 10:05:06 Type 2 diabetes mellitus without complication 673610319 E11.9 a1c newly elevated at 6.7 3 months ago. Diet and lifestyle attempt this past 3 months, has really not been committed at all, she admits to no change, especially with the holidays. No change in A1C of 6.7. Spent 30 minutes reviewing low glycemic diet, eating more protein, veggies and fruit, and intentiona lly exercising . We talked about importance of not drinking her carbs, good sleep hygeine, monitoring home glucose. Lightheadedness 89340575 8 R42 intermitte nt, near syncopal episodes. I told her that she needs to stay VERY hydrated, should be checking her sugar and BP during these episodes if she has any more. If any more occur, we will need to order holter monitor. she understand s. RRR today. Palpitations 02372041 R0 0.2 hydration, sleep, alcohol and caffeine avoidance. [id number] Iris Irving MD [facility] [address] [facility] [address] [facility] [address] 07/20/2024 09:49:23 07/21/2024 10:29:16 Synovial popliteal cyst of left knee 0473323426 M71.22 8798633 taking 600mg Ibuprofen otc with some relief.Pablo l refer to ortho, continue NSAID of choice. Ice in the evening if it helps. Avoid any steps, squatting etc. Advised that ortho likely will offer steroid injection. Discussed knee replacemen t etc. which she has had conversati on before with ortho. Obese class I 0684606544 66686 E66.811 [id number] keep upcoming July appt for a1c and DM f/u [id number] Iris Irving MD [facility] [address] [facility] [address] [facility] [address] 09/07/2024 11:09:46 09/07/2024 15:50:25 Adult health examination 291842805 Z00.00 Health Risk Assessment collected and reviewed. Labs all UTD in January, minus lipids and vit D. Colonoscop y 01/2019, repeat 10 years. No mammogram on file. Tetanus 07/2025 due next year. Pneumonia offered, RSV and zoster recommende d along with fall seasonal COVID and Flu. Last bone density 2013, recommend repeating and she agrees. Obese class I 2360024422 97941 E66.811 [id number] Patient with work on healthier whole food diet, routine exercise in attempt to lose weight. Well contr olled type 2 diabetes mellitus 471570631 E11.9 [id number] it's been a couple of years. A1C MUCH improved and in prediabete s range with diet changes discussed at last visit alone. Congratula deb on her success. Mixed hyperlipidemia 267 953113 E78.2 ate this AM, bagel with cream cheese, and berries 4 hours ago Vitamin D deficiency 347 02704 E55.9 continue otc supplement and will check bone density Screening mammography 24 457942 Z12.31 [id number] order printed for scheduling . Does see sanitizer at [facility] and just had a pap. HIV screening 890035742 Z11.4 214054 Viral scre ening status 503229710 Z11.59 860478 Menopause present 481849 006 Z78.0 21277 Requires v accination against Streptococcus pneumoniae 1878863516 Z23 552674 Effusion o f joint of left knee 2064403983 11059 M25.309 [id number] has appt with Vijay on Nov 01. Xrays confirm effusion, still giving out, shifting, can hardly bear weight. Already failed PT, she went for 6 visit through Omer's office to [facility] in [facility]. Has been on NSAIDs since June since the twisting injury. Health Concerns Section Related Observation LastModified by Organization Detai ls LastModified Time None Recorded Concern Status LastModified by Organization Details LastModified Time None Recorded Advance Directives Directive N: Payers Insurance Date Sequence Insurance Name Policy Number Policy Castro Covered Member ID Castro Member ID Guarantor Name 11/19/2023 1 [employer] [id number] Christa Mcknightwvey [id number] Christa Mcknightwvey 11/28/2016 1 [facility] (PPO) [id number] Christa Martinez Cawvey [id number] Christa Martinez Cawvey 09/04/2024 1 [facility] (MEDICARE REPLACEMENT/ ADVANTAGE - PPO) [id number] Christa Martinez Cawvey [id number] Christa Mcknightwvey 01/12/2020 1 [employer] (PPO) [id number] Christa Martinez Cawvey [id number] Christa Mcknightwvey Notes Date Note Type Note Provider Name and Address Organization Details Recorded Time 02/13/2023 text/html Urinary FrequencyReported by PatientHPIFor associated symptoms, patient reportsabdominal pain (lower left, resolved),chills,pain during urination,incomplete emptying of bladder,nausea,nocturi a,urine odor, andfeelings of urgency. For onset/timing, patient reportsactual date: (last night).ROS as noted in the HPI ACUTE VISIT/SUBJECTIVE: Christa presents with dysuria beginning last night- sense of fullness- urinary frequency, urgency- no hematuria- no back pain- no fevers, + chills- fatigue She continues to feel overall poorly- did see ent after our last visit, he treated with clinda- no significant improvement - has not obtained routine labwork Pertinent past medical, surgical, family and social history reviewed and updated as needed.Pertinent positives and negatives as noted in HPI. All other systems reviewed and negative.-Proof Machine Operator/Nursing note reviewed.- Ludin Casanova MD Attn: Accounting, [address] [facility], [place], [address], [facility] 02/13/2023 19:06:51 11/19/2023 text/html Generic HPI TemplateReported by [email or web address] days ago went to due to burning urination, took macrobid for 7 days and sensitivity was <16 for nitrofurantoin. 3 days later her back hurt really bad to the left, chills and fever. Nausea too. Urine white and clear. SO THIRSTY and cotton mouth. PB toast and jello 3 hours agoROS as noted in the HPI Pt went to Urgent care on Nov 06 for a UTI, Head stuffy, cotton mouth, chills on friday and friday, fever yesterday 99.5. VAN Loomis Attn: Accounting,[address] [facility], [place], [address], [facility] 11/19/2023 23:10:36 02/16/2024 text/html Diabetes F/URepo rted by PatientHPIFor associated symptoms, patient reportsincreased thirst,increased urination, andcalluses on feetbut reportsno weight gain,no weight loss,no dizziness,no sweats,no headaches,no confusion,no increased appetite,no blurred vision, andno numbness of feet. For labs, patient reportslast a1c result: 6.7(11/20/23). For context, patient reportsseeing eye doctor regularly,checking feet regularly,not missing doses of medications, andno side effects from medications.This was originally scheduled to f/u on her newly diagnosed DM, and assure that diet control is sufficient. She admits she hasn't really changed anything, not diet or exercise.ROS as noted in the HPI pt said that she has felt like she was going to faint a couple times when she has been driving during the day pt said that she just don't feel right VAN Loomis Attn: Accounting,[address], [place], [address], [facility] 02/22/2024 23:18:09 07/20/2024 text/html KneeReported by PatientHPIFor associated symptoms, patient reportsweakness,catchi ng/locking, andinstabilitybut reportsno numbness,no tingling,no redness,no warmth,no popping/clicking,no buckling,no grinding,no radiation down leg,no drainage,no fever,no chills,no weight loss, andno change in bowel/bladder habits. For location, patient reportsleft. For quality, patient reportssharp,deep,cons tant, andworsening. For severity, patient reportsmoderate. For duration, patient reportsdate of onset: (07/11/24). For timing, patient reportscannot identify. For context, patient reportscannot identify. For alleviating factors, patient reportsiceandelevation . For aggravating factors, patient reportsstanding,walkin g,bending/squatting,ro m,weight bearing,getting out of bed,going from sit to stand,upstairs, anddownstairs. For previous surgery, patient reportsnone. For prior imaging, patient reportsx ray(urtalsound). For previous injections, patient reportsnone. For previous pt, patient reportsnone. For work related, patient reportsno. For working, patient reportsno.went to 10 days ago, acute left knee, behind pain. IN the past was always her right, saw ortho 2 years ago for it.This time it's left knee, acute onset afternoon on a Friday with no known injury, US showed 1-2 cm barraza's cyst. Xray.ROS as noted in the HPI pt want to urgent care on 07/11/24 VAN Loomis Attn: Accounting,[address] , [place], [address], [facility] 07/20/2024 12:29:36 09/07/2024 text/html MAW 2Reported by PatientSocial/Behavior al HistoryFor diet and nutrition, patient reportshealthy diet. For fracture risk, patient reportsno history of fracturesandno sudden unexplained fractures.Mental Status:For concentration and memory, patient reportsno decreased concentrating ability,no memory lapses or loss, anddoes not forget words. For speech/motor difficulties, patient reportsno speech difficulties,no difficulty expressing formulated concepts,no difficulty with fine manipulative tasks,no difficulty writing/copying,no slowed reaction time, anddoes not knock things over when trying to pick them up.Functional AbilityFor falls risk assessment, patient reportsdizziness/verti gobut reportsno frequent falls while walking,no fall in the past year, andno fall since last visit. For home safety, patient reportsdoes not have hand bars in the bathroom/showerbut reportsno unsafe mary anne hazzards,no unsafe stairs,working smoke/co detectors,practicing 'safer sex',no fire arms, andgood lighting in the home. For hearing, patient reportsno loss of hearing. For vision, patient reportsno vision problems. For activities of daily living, patient reportsable to bathe with limited or no assistance,able to contol urination and bowels,able to dress with limited or no assistance,able to feed self with limited or no assistance,able to get out of chair or bed with limited or no assistance,able to groom with limited or no assistance, andable to toilet with limited or no assistance. For instrumental activities of daily living, patient reportsable to do house work with limited or no assistance,able to grocery shop with limited or no assistance,able to manage medications with limited or no assistance,able to manage money with limited or no assistance,able to prepare meals with limited or no assistance, andable to use the phone with limited or no assistance.ROS as noted in the HPI VAN Loomis Attn: Accounting,[address] [facility], [place], [address], [facility] 09/07/2024 14:15:19 OBGyn Episode No OBEpisode recorded.
[2024-11-30 14:12] LABS: Hematocrit 41.1 % (37.0-47.0); Hemoglobin 13.4 g/dL (12.0-15.0)
[2024-11-30 14:26] LABS: Albumin Level 4.2 g/dL (3.5-5.1); Estimated Glomerular Filt Rate > 60
== END 2024-11-30 12:54 | disposition home or self-care (01) ==
PROVIDERS: PCP Physician Assistant; Visit Provider Orthopaedic Surgery
DX: M17.11 Unilateral primary osteoarthritis, right knee (principal); Z01.818 Encounter for other preprocedural examination
CPT/HCPCS: 36415; 73700; 82040; 82565; 85014; 85018; 93005

== ENCOUNTER 2024-12-02 14:13 | Outpatient (CLI) | payer MEDICARE, SELFPAY ==
--- NOTE | ~2024-12-02 | DEXA_ITS ---
Bone Density Report Name: YASMIN GARG Age: 64 Sex: Female Ethnicity: White Date of : 1960 Indication: postmenopausal; screening for osteoporosis; height loss; hysterectomy; Referring Provider: Parent, Sil Crawford Study: Bone densitometry was performed. Exam Date: December 02, 2024 Accession number: [id number] Bone Density: Region BMD T-score Z-score Classification AP Spine(L1-L4) 0.850 -1.8 0.1 Osteopenia Femoral Neck (Left) 0.639 -1.9 -0.3 Osteopenia Total Hip (Left) 0.785 -1.3 0.0 Osteopenia Femoral Neck (Right) 0.685 -1.5 0.1 Osteopenia Total Hip (Right) 0.754 -1.5 -0.3 Osteopenia Total Hip Mean 0.770 -1.4 -0.2 Osteopenia World Health Organization criteria for BMD impression classify patients as: Normal (T-score at or above -1.0), Osteopenia (T-score between -1.0 and -2.5), or Osteoporosis (T-score at or below -2.5). 10-year Fracture Risk(1): Major Osteoporotic Fracture 9.5% Hip Fracture 1.3% Reported Risk Factors: [place] (), Neck BMD=0.639, BMI=34.7 (1) FRAX(R) Version 3.08. Fracture probability calculated for an untreated patient. Fracture probability may be lower if the patient has received treatment. Clinical Information Provided by Patient: Has the following medical conditions: Hysterectomy Patient maximum height was 67 Menopause Age: 43 No regular weight bearing exercise Does not regularly consume dairy products Onset of menses at age 11 Number of children 1 Impression: The patient has low bone mass, based on the Left Femoral Neck T-score. The patient has an estimated ten-year risk of hip fracture of 1.3% and an estimated ten-year risk of major fracture of 9.5%, based on the WHO FRAX algorithm. Discussion: BONE DENSITY IS LOW AT ONE OR MORE SKELETAL SITES. This patient's lowest T-score is low at one or more skeletal sites. It meets the World Health Organization's (WHO) criteria for ?low bone mass? (T-score between -1.0 and -2.5). The patient's 10-year risk of fracture as calculated by FRAX is less than the threshold where pharmacological therapy is recommended by the National Osteoporosis Foundation (NOF). However, all treatment decisions require clinical judgment and consideration of individual patient factors, including patient preferences, comorbidities, previous drug use, risk factors not captured in the FRAX model (e.g., frailty, falls, vitamin D deficiency, increased bone turnover, interval significant decline in bone density) and possible under or overestimation of fracture risk by FRAX. The patient should follow a healthful lifestyle (good nutrition with adequate calcium and vitamin D, and appropriate weight-bearing exercise). Follow-Up: Consider repeating this study in 2 to 3 years to reassess this patient's status, or sooner if there is some new clinical indication. Reported by: BRUCE on 12/02/2024 2:40:00 PM. Reviewed, dictated and finalized at location A.
== END 2024-12-02 14:14 | disposition home or self-care (01) ==
PROVIDERS: PCP Obstetrics & Gynecology; Visit Provider Physician Assistant
DX: M85.89 Other specified disorders of bone density and structure, multiple sites (principal); Z78.0 Asymptomatic menopausal state
CPT/HCPCS: 77080

== ENCOUNTER 2024-12-29 15:22 | Outpatient (CLI) | payer MEDICARE, SELFPAY ==
--- NOTE | ~2024-12-29 | MM_ITS ---
EXAMINATION: MM screening asya BI w ann HISTORY: Screening TECHNIQUE: Craniocaudal and mediolateral oblique 3-D tomosynthesis images were obtained and synthetic 2-D images were generated. CAD analysis was submitted and interpreted. COMPARISON: Comparison to multiple prior studies sequentially, with oldest reviewed study dated , 03/06/2016 BREAST PARENCHYMAL COMPOSITION: There are scattered areas of fibroglandular density. FINDINGS: There is no evidence of suspicious mass, calcification, or architectural distortion to suggest malignancy in either breast. IMPRESSION: 1. No mammographic evidence of malignancy. 2. Recommend routine screening mammography in one year. BI-RADS Category 1: Negative Reviewed, dictated and finalized at location B. [employer]
== END 2024-12-29 15:23 | disposition home or self-care (01) ==
LOC: MICIMG 15:23
PROVIDERS: PCP Physician Assistant; Visit Provider Obstetrics & Gynecology
DX: Z12.31 Encounter for screening mammogram for malignant neoplasm of breast (principal)
CPT/HCPCS: 77063; 77067